=== PATIENT | female | born 1965 | race Caucasian/White ===

== ENCOUNTER 2017-02-12 15:53 | Inpatient (IN) | payer BC ==
[2017-02-12] MEDS ORDERED: Lactated Ringers 1,000 ML IV ONE (16:20)
[2017-02-12] MEDS ORDERED: Fluconazole/Normal Saline 200 MG in Premix Bag 1 BAG IV ONE (16:46)
[2017-02-12] MEDS ORDERED: Acetaminophen 325 MG Tab PO ONE (17:41)
--- NOTE | 2017-02-12 17:49 | EDM.PDOC ---
ED HISTORY OF PRESENT ILLNESS - General Chief Complaint: Respiratory Problem Stated Complaint: SOB, ELEVATED HR, NAUSEA Time Seen by Provider: 02/12/17 16:06 Source of Information: Reports: Patient, Family, Provider History Limitations: Reports: No limitations - History of Present Illness INITIAL COMMENTS - FREE TEXT/NARRATIVE: The patient presents with fever, cough, generalized weakness, shortness of breath and fatigue. This all started about 2 1/2 weeks ago. Before that she was in [place] to meet with some family and a few days after that she started having symptoms. She was seen at [facility] in clinic on 02/03/17 and was given some doxycycline and some tinsilon pearls She went back today because she is not feeling better. She is not feeling well. She is lightheaded and still coughing. She also has a fever. They checked labs. Her WBC was normal along with her CRP and sed rate. Her anion gap was a little elevated at 24. Her D-dimer was elevated so they did a CT angio of her chest and it was negative for PE but she had infiltrates in the right lung. When she arrived here, she was flushed and her heart rate was elevated into the 150s. She denies chest pain. Timing/Duration: Reports: Week(s): (11/18) Severity: severe Improves with: Reports: None Worsens with: Reports: None Associated Symptoms (General): Reports: cough, fever/chills, shortness of breath. Denies: nausea/vomiting - Related Data Allergies/ADRs: Allergies Allergy/AdvReac Type Severity Reaction Status Date / Time morphine Allergy Hives Verified 06/16/16 16:14 Sulfa (Sulfonamide Allergy Hives Verified 06/16/16 16:14 Antibiotics) Home Meds: Home Meds Levothyroxine Sodium [Synthroid] 1 tab PO DAILY 01/22/15 [History] Past Medical History Cardiovascular History: Reports: High cholesterol, Other (see below) Other Cardiovascular History: sinus tachycardia Gastrointestinal History: Reports: Other (see below) Other Gastrointestinal History: ulcerative colitis Genitourinary History: Reports: Renal calculus 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: Endocrine/Metabolic History: Reports: Hypothyroidism - Past Surgical History GI Surgical History: Reports: Appendectomy, Cholecystectomy, Other (see below) Other GI Surgeries/Procedures: bowel obstruction sx, removal of colon and most of small bowel, Social & Family History - Tobacco Use Smoking Status *Q: Never Smoker Second Hand Smoke Exposure: No - Caffeine Use Caffeine Use: Reports: Coffee, Tea - Alcohol Use Days Per Week of Alcohol Use: 0 - Recreational Drug Use Recreational Drug Use: No - Living Situation & Occupation Living situation: Reports: , with spouse, with family Occupation: employed ED ROS GENERAL - Review of Systems Review Of Systems: See Below Constitutional: Reports: fever, chills, malaise, weakness, fatigue HEENT: Reports: No symptoms Respiratory: Reports: Shortness of Breath, Cough Cardiovascular: Reports: No symptoms Endocrine: Reports: no symptoms GI/Abdominal: Reports: No symptoms : Reports: no symptoms Musculoskeletal: Reports: no symptoms Skin: Reports: no symptoms Neurological: Reports: No Symptoms ED EXAM, GENERAL - Physical Exam Exam: See Below Exam Limited By: No limitations General Appearance: alert, no apparent distress Ears: normal external exam Nose: normal inspection Head: atraumatic, normocephalic Neck: normal inspection Respiratory/Chest: no respiratory distress, lungs clear, normal breath sounds Cardiovascular: no edema, no murmur, tachycardia GI/Abdominal: soft, non tender, no organomegaly Back Exam: normal inspection Extremities: normal inspection Neurological: alert, oriented, no motor/sensory deficits Course - Vital Signs Last Recorded V/S: Last Vital Signs Temp 101.8 F H 02/12/17 17:09 Pulse 123 H 02/12/17 17:09 Resp 22 H 02/12/17 17:09 BP 128/84 02/12/17 16:01 Pulse Ox 98 02/12/17 17:09 - Orders/Labs/Meds Orders: Active Orders 24 hr Category Date Time Status COCCIDIOIDES AB CF/ID SERUM [REF] Stat Lab 02/12/17 17:21 Received CULTURE BLOOD [BC] Stat Lab 02/12/17 16:50 Received CULTURE BLOOD [BC] Stat Lab 02/12/17 17:05 Received LACTIC ACID [CHEM] Stat Lab 02/12/17 16:50 Received Blood Culture x2 Reflex Set [OM.PC] Stat Oth 02/12/17 16:19 Ordered Meds: Medications Discontinued Medications Generic Name Dose Route Start Last Admin Trade Name Freq PRN Reason Stop Dose Admin Acetaminophen 975 mg 02/12/17 17:41 Tylenol PO 02/12/17 17:42 NOW ONE Lactated Ringer's 1,000 mls @ 1,000 mls/hr 02/12/17 16:20 02/12/17 16:32 Ringers, Lactated IV 02/12/17 17:19 1,000 mls/hr .BOLUS ONE Administration Fluconazole/Sodium Chloride 100 mls @ 100 mls/hr 02/12/17 16:46 02/12/17 17: 05 200 mg/ Premix IV 02/12/17 17:45 100 mls/hr ONETIME ONE Administration - Re-Assessments/Exams Free Text/Narrative Re-Assessment/Exam: 02/12/17 18:03 I ordered an IV LR bolus, levaquin 750mg IV, and diflucan 200mg IV. I am worried she may have [place] Fever. I obtained blood cultures and sent off serum for coccytiomycosis. I called Dr Alanis and she agreed to the admission. She requested I send out a test for legionella. I gave her some tylenol 975mg by mouth for her fever. Departure - Departure Time of Disposition: 18:05 Disposition: Home, Self-Care 01 Condition: good Clinical Impression: Dehydration Pneumonia Qualifiers: Pneumonia type: due to unspecified organism Laterality: right Lung location: upper lobe of lung Qualified Code(s): J18.1 - Lobar pneumonia, unspecified organism Forms: ED Department Discharge - My Orders Last 24 Hours: My Active Orders 02/12/17 16:19 Blood Culture x2 Reflex Set [OM.PC] Stat 02/12/17 16:50 CULTURE BLOOD [BC] Stat LACTIC ACID [CHEM] Stat 02/12/17 17:05 CULTURE BLOOD [BC] Stat 02/12/17 17:21 COCCIDIOIDES AB CF/ID SERUM [REF] Stat - Assessment/Plan Last 24 Hours: My Active Orders 02/12/17 16:19 Blood Culture x2 Reflex Set [OM.PC] Stat 02/12/17 16:50 CULTURE BLOOD [BC] Stat LACTIC ACID [CHEM] Stat 02/12/17 17:05 CULTURE BLOOD [BC] Stat 02/12/17 17:21 COCCIDIOIDES AB CF/ID SERUM [REF] Stat
--- NOTE | 2017-02-12 18:16 | PCM.HP ---
H&P History of Present Illness - General Date of Service: 02/12/17 Source of Information: Patient, Provider History Limitations: Reports: No limitations - History of Present Illness Initial Comments - Free Text/Narative: 51 year old female with 2-3 week history of not feeling well, traveled roughly 2 weeks ago to [place]. Played gold, occasionally use a hot tube reports malaise, weakness, fever, and a dry cough. Failed outpatient antibiotic therapy of doxycycline and tessalon perles. An extensive respiratory panel has been ordered. WBCs are not elevated, CXR is not suggestive of a pulmonary process CTA however mentions a right sided infiltrate. The patient has been started on Levoquin, Zosyn, and Diflucan Onset of Symptoms: Reports: gradual Symptom Onset Date: 01/22/17 Duration of Symptoms: Reports: Week(s):, Getting worse Location: Reports: chest Severity: severe Improves with: Reports: None Worsens with: Reports: None Context: Reports: travel Associated Symptoms: Reports: chest pain, cough, fever/chills, malaise, nausea/ vomiting, weakness Back Pain Score (Numeric/FACES): 5 - Related Data Allergies/Adverse Reactions: Allergies Allergy/AdvReac Type Severity Reaction Status Date / Time morphine Allergy Hives Verified 06/16/16 16:14 Sulfa (Sulfonamide Allergy Hives Verified 06/16/16 16:14 Antibiotics) Home Medications: Home Meds Levothyroxine Sodium [Synthroid] 1 tab PO DAILY 01/22/15 [History] Past Medical History Cardiovascular History: Reports: High cholesterol, Other (see below) Other Cardiovascular History: sinus tachycardia Gastrointestinal History: Reports: Other (see below) Other Gastrointestinal History: ulcerative colitis Genitourinary History: Reports: Renal calculus 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: Endocrine/Metabolic History: Reports: Hypothyroidism - Past Surgical History GI Surgical History: Reports: Appendectomy, Cholecystectomy, Other (see below) Other GI Surgeries/Procedures: bowel obstruction sx, removal of colon and most of small bowel, Social & Family History - Tobacco Use Smoking Status *Q: Never Smoker Second Hand Smoke Exposure: No - Caffeine Use Caffeine Use: Reports: Coffee, Tea - Alcohol Use Days Per Week of Alcohol Use: 0 - Recreational Drug Use Recreational Drug Use: No - Living Situation & Occupation Living situation: Reports: , with spouse, with family Occupation: employed H&P Review of Systems - Review of Systems: Review Of Systems: See Below General: Reports: fever, chills, malaise, weakness, fatigue HEENT: Reports: no symptoms Pulmonary: Reports: Shortness of Breath Cardiovascular: Reports: palpitations, lightheadedness Gastrointestinal: Reports: No symptoms Genitourinary: Reports: no symptoms Musculoskeletal: Reports: no symptoms Skin: Reports: no symptoms Psychiatric: Reports: no symptoms Neurological: Reports: Dizziness Hematologic/Lymphatic: Reports: no symptoms Immunologic: Reports: no symptoms Exam - Exam Exam: See Below - Vital Signs Vital Signs: Last Vital Signs Temp 38.5 C H 02/12/17 18:05 Pulse 123 H 02/12/17 17:09 Resp 22 H 02/12/17 17:09 BP 128/84 02/12/17 16:01 Pulse Ox 98 02/12/17 17:09 Weight: 78.925 kg - Exam Quality Assessment: supplemental oxygen, DVT prophylaxis General: alert, oriented, cooperative, mild distress HEENT: EACs clear, EOMI, Nares patent, Normal nasal septum, Pupils equal, Pupils reactive, Other (dry mucosa) Neck: trachea midline Lungs: Normal respiratory effort, Decreased breath sounds Cardiovascular: regular rate, tachycardia Abdomen: normal bowel sounds, soft (Female) Exam: Deferred Rectal (Female) Exam: Deferred Back Exam: normal inspection Extremities: normal pulses Skin: warm Neurological: cranial nerves intact Neuro Extensive - Mental Status: alert, oriented x3, normal mood/affect, normal cognition, memory intact Neuro Extensive - Motor, Sensory, Reflexes: CN II-XII intact Psychiatric: alert, normal affect, normal mood *Q Meaningful Use (ADM) - VTE *Q VTE Criteria *Q: - Stroke *Q Stroke Criteria *Q: - AMI *Q AMI Criteria *Q: - Problem List (1) Dehydration SNOMED Code(s): 10606479 ICD Code: E86.0 - DEHYDRATION Status: Acute Current Visit: Yes (2) Pneumonia SNOMED Code(s): 157169460 ICD Code: J18.9 - PNEUMONIA, UNSPECIFIED ORGANISM Status: Acute Current Visit: Yes Qualifiers: Pneumonia type: due to unspecified organism Laterality: right Lung location: upper lobe of lung Qualified Code(s): J18.1 - Lobar pneumonia, unspecified organism (3) Abdominal pain SNOMED Code(s): 25374127 ICD Code: R10.9 - UNSPECIFIED ABDOMINAL PAIN Status: Acute Current Visit : No (4) Acute febrile illness SNOMED Code(s): 922169617 ICD Code: R50.9 - FEVER, UNSPECIFIED Status: Acute Current Visit: No Problem List Initiated/Reviewed/Updated: Yes Assessment/Plan Comment:: Impression/Plan: Febrile illness appears to be respiratory after travel to the , had brief exposure to a hot tub during [place] trip. CAP, can not exclude atypical pneumonia, have started broad spectrum coverage including Diflucan; extensive respiratory panel ordered. Not currently hypoxic Dehydration Sepsis protocol started, aggressive IV hydration Antiemetic q 6 and q 8 as needed. Nebs: Xopenex/Albuterol Tylenol/NSAID Start clear liquids, advance as tolerated. DVT/GI prophylaxis
[2017-02-12] MEDS ORDERED: Promethazine 12.5 MG in Sodium Chloride 0.9% 50 ML IV PRN (18:21)
[2017-02-12] MEDS ORDERED: Acetaminophen Susp 325 MG/10.15 ML UD Cup PO PRN (18:21)
[2017-02-12] MEDS ORDERED: Ondansetron 4 MG/2 ML SDV IVPUSH PRN (18:21)
[2017-02-12] MEDS ORDERED: Piperacillin/Tazobactam 4.5 GM in Sodium Chloride 0.9% 100 ML IV SCH (18:45)
[2017-02-12] MEDS ORDERED: Albuterol 0.083% 2.5 MG/3 ML Neb Soln NEB PRN (18:49)
[2017-02-12] MEDS ORDERED: Codeine/Promethazine 10-6.25 MG/5 ML Syrup 5 ML UD Cup PO PRN (18:50)
[2017-02-12] MEDS ORDERED: Piperacillin/Tazobactam 4.5 GM in Sodium Chloride 0.9% 100 ML IV ONE (19:45)
[2017-02-12] MEDS: Levalbuterol HCl 1.25 MG/3 ML Neb NEB SCH (20:19)
[2017-02-12] MEDS: Benzonatate 100 MG Cap PO SCH (20:38)
[2017-02-12] MEDS: Lactated Ringers 1,000 ML IV SCH ×4 (20:38→23:58)
[2017-02-12] MEDS ORDERED: Fluconazole 100 MG Tab PO SCH (21:00)
[2017-02-12] MEDS ORDERED: Levalbuterol HCl 1.25 MG/3 ML Neb NEB SCH (21:00)
[2017-02-12] MEDS: Ibuprofen 600 MG Tab PO PRN (21:08)
[2017-02-13] MEDS: Piperacillin/Tazobactam 4.5 GM in Sodium Chloride 0.9% 100 ML IV SCH ×3 (04:10→18:12)
[2017-02-13] MEDS: Levalbuterol HCl 1.25 MG/3 ML Neb NEB SCH ×4 (06:12→20:32)
[2017-02-13] MEDS ORDERED: Lactated Ringers 1,000 ML IV SCH (07:53)
[2017-02-13] MEDS: Levofloxacin/Dextrose 5%-Water 750 MG in Premix Bag 1 BAG IV SCH (07:57)
[2017-02-13] MEDS: Lactated Ringers 1,000 ML IV SCH (07:58)
[2017-02-13] MEDS: Levothyroxine 88 MCG Tab PO SCH (08:04)
[2017-02-13] MEDS: Fluconazole 100 MG Tab PO SCH ×2 (08:04→20:12)
[2017-02-13] MEDS: Benzonatate 100 MG Cap PO SCH ×3 (08:04→20:12)
[2017-02-13] MEDS: Saccharomyces Boulardii (Probiotic) 250 MG Cap PO SCH (08:04)
[2017-02-13] MEDS: Ibuprofen 600 MG Tab PO PRN (08:05)
[2017-02-13] MEDS: Enoxaparin 40 MG/0.4 ML Syringe SUBCUT SCH (08:05)
[2017-02-13] MEDS ORDERED: Pantoprazole 40 MG Vial IVPUSH SCH (09:00)
[2017-02-13] MEDS ORDERED: Non-Formulary Medication 1 Each (L.Acidoph,Paracasei, B.Lactis [Probiotic] 1 CAP) PO PRN (09:46)
--- NOTE | 2017-02-13 12:30 | PCM.PN ---
- General Info Date of Service: 02/13/17 Functional Status: Reports: tolerating diet, urinating - Review of Systems General: Reports: Weakness, Fatigue, Malaise HEENT: Reports: no symptoms Pulmonary: Reports: no symptoms Cardiovascular: Reports: No Symptoms Gastrointestinal: Reports: No symptoms Genitourinary: Reports: no symptoms Musculoskeletal: Reports: no symptoms Skin: Reports: no symptoms Neurological: Reports: No Symptoms Psychiatric: Reports: no symptoms - Patient Data Vitals - most recent: Last Vital Signs Temp 37.2 C 02/13/17 07:52 Pulse 115 H 02/13/17 07:52 Resp 18 02/13/17 07:52 BP 109/66 02/13/17 07:52 Pulse Ox 95 02/13/17 09:03 Weight - most recent: 82.69 kg I&O - last 24 hours: Intake & Output 02/12/17 02/13/17 02/13/17 22:59 06:59 14:59 Intake Total 4140 Output Total 500 950 Balance -500 3190 Lab Results last 24 hrs: Laboratory Results - last 24 hr 02/13/17 02/13/17 02/13/17 Range/Units 06:35 06:35 06:35 WBC 3.63 L (3.98-10.04) K/mm3 RBC 3.64 L (3.98-5.22) M/mm3 Hgb 10.7 L (11.2-15.7) gm/L Hct 33.0 L (34.1-44.9) % MCV 90.7 (79.4-94.8) fl MCH 29.4 (25.6-32.2) pg MCHC 32.4 (32.2-35.5) g/dl RDW Std Deviation 43.2 (36.4-46.3) fL Plt Count 121 L (182-369) K/mm3 MPV 10.0 (9.4-12.3) fl Neut % (Auto) 67.5 (34.0-71.1) % Lymph % (Auto) 25.9 (19.3-51.7) % [place] % (Auto) 6.3 (4.7-12.5) % Eos % (Auto) 0 L (0.7-5.8) Baso % (Auto) 0.0 L (0.1-1.2) % Neut # (Auto) 2.45 (1.56-6.13) K/mm3 Lymph # (Auto) 0.94 L (1.18-3.74) K/mm3 [place] # (Auto) 0.23 L (0.24-0.36) K/mm3 Eos # (Auto) 0.00 L (0.04-0.36) K/mm3 Baso # (Auto) 0.00 L (0.01-0.08) K/mm3 Sodium 141 (136-145) mEq/L Potassium 3.0 L (3.5-5.1) mEq/L Chloride 107 (98-107) mEq/L Carbon Dioxide 22 (21-32) mEq/L Anion Gap 15.0 (5-15) BUN 12 (7-18) mg/dL Creatinine 0.8 (0.55-1.02) mg/dL Est Cr Clr Drug Dosing 69.59 mL/min Estimated GFR (MDRD) > 60 (>60) mL/min BUN/Creatinine Ratio 15.0 (14-18) Glucose 98 (74-106) mg/dL Lactic Acid 1.5 (0.4-2.0) mmol/L Calcium 8.2 L (8.5-10.1) mg/dL Magnesium 1.5 L (1.8-2.4) mg/dl C-Reactive Protein 1.3 H* (<1.0) mg/dL TSH 3rd Generation 2.028 (0.358-3.74) uIU/mL John Paul Results last 24 hrs: Microbiology 02/12/17 18:30 Influenza Type A Antigen Screen - Final Nasal, Right NEGATIVE INFLUENZA A VIRUS AG Influenza Type B Antigen Screen - Final NEGATIVE INFLUENZA B VIRUS AG Med Orders - Current: Current Medications Acetaminophen (Tylenol Solution) 650 mg PO Q6H PRN PRN Reason: Fever Albuterol (Proventil Neb Soln) 2.5 mg NEB Q4HR PRN PRN Reason: Shortness of Breath Benzonatate (Tessalon Perles) 200 mg PO TID [facility] Last Admin: 02/13/17 08:04 Dose: 200 mg Enoxaparin Sodium (Lovenox) 40 mg SUBCUT DAILY [facility] Last Admin: 02/13/17 08:05 Dose: 40 mg Fluconazole (Diflucan) 200 mg PO BID [facility] Last Admin: 02/13/17 08:04 Dose: 200 mg Promethazine HCl 12.5 mg/ (Sodium Chloride) 50.5 mls @ 100 mls/hr IV Q6H PRN PRN Reason: Nausea/Vomiting Levofloxacin/Dextrose 750 mg/ (Premix) 150 mls @ 100 mls/hr IV Q24H [facility] Last Admin: 02/13/17 07:57 Dose: 100 mls/hr Piperacillin Sod/Tazobactam (Sod 4.5 gm/ Sodium Chloride) 100 mls @ 25 mls/hr IV Q8H [facility] Last Admin: 02/13/17 10:05 Dose: 25 mls/hr Lactated Ringer's (Ringers, Lactated) 1,000 mls @ 125 mls/hr IV ASDIRECTED [facility] Last Admin: 02/13/17 07:59 Dose: 125 mls/hr Magnesium Sulfate 2 gm/ Premix 50 mls @ 25 mls/hr IV ONETIME ONE Stop: 02/13/17 16:59 Ibuprofen (Motrin) 600 mg PO Q8H PRN PRN Reason: Pain Last Admin: 02/13/17 08:05 Dose: 600 mg Levalbuterol HCl (Xopenex) 1.25 mg NEB QIDRT [facility] Last Admin: 02/13/17 09:03 Dose: 1.25 mg Levothyroxine Sodium (Synthroid) 88 mcg PO DAILY [facility] Last Admin: 02/13/17 08:04 Dose: 88 mcg Ondansetron HCl (Zofran) 4 mg IVPUSH Q8H PRN PRN Reason: Nausea/Vomiting Pantoprazole Sodium (Protonix) 40 mg PO DAILY@0700 [facility] Potassium Chloride (Potassium Chloride Solution) 40 meq PO TID [facility] Promethazine HCl/Codeine (Phenergan With Codeine) 10 ml PO Q6HR PRN PRN Reason: Cough Saccharomyces Boulardii (Florastor) 500 mg PO DAILY [facility] Last Admin: 02/13/17 08:04 Dose: 500 mg Discontinued Medications Acetaminophen (Tylenol) 975 mg PO NOW ONE Stop: 02/12/17 17:42 Last Admin: 02/12/17 18:05 Dose: 975 mg Fluconazole (Diflucan) 200 mg PO BID [facility] Lactated Ringer's (Ringers, Lactated) 1,000 mls @ 1,000 mls/hr IV .BOLUS ONE Stop: 02/12/17 17:19 Last Admin: 02/12/17 16:32 Dose: 1,000 mls/hr Fluconazole/Sodium Chloride (200 mg/ Premix) 100 mls @ 100 mls/hr IV ONETIME ONE Stop: 02/12/17 17:45 Last Admin: 02/12/17 17:05 Dose: 100 mls/hr Lactated Ringer's (Ringers, Lactated) 1,000 mls @ 999 mls/hr IV ASDIRECTED [facility] Last Admin: 02/12/17 22:53 Dose: 999 mls/hr Piperacillin Sod/Tazobactam (Sod 4.5 gm/ Sodium Chloride) 100 mls @ 200 mls/hr IV Q6H [facility] Last Admin: 02/12/17 19:51 Dose: Not Given Piperacillin Sod/Tazobactam (Sod 4.5 gm/ Sodium Chloride) 100 mls @ 200 mls/hr IV ONETIME ONE Stop: 02/12/17 20:14 Last Admin: 02/12/17 19:44 Dose: 200 mls/hr Lactated Ringer's (Ringers, Lactated) 1,000 mls @ 250 mls/hr IV ASDIRECTED [facility] Stop: 02/13/17 07:54 Last Admin: 02/13/17 07:58 Dose: 250 mls/hr Levalbuterol HCl (Xopenex) 1.25 mg NEB QID [facility] Non-Formulary Medication (L.Acidoph,Paracasei, B.Lactis [Probiotic]) 1 cap PO DAILY PRN PRN Reason: Diarrhea Pantoprazole Sodium (Protonix Iv) 40 mg IVPUSH DAILY [facility] Last Admin: 02/13/17 08:05 Dose: 40 mg - Exam Quality Assessment: DVT prophylaxis General: alert, oriented, cooperative, no acute distress HEENT: Pupils equal, Pupils reactive, EOMI Neck: trachea midline, no JVD Lungs: Normal respiratory effort, Decreased breath sounds Cardiovascular: Regular Rate, Tachycardia Abdomen: bowel sounds present, soft, no tenderness, no distension (Female) Exam: Deferred Back Exam: normal inspection Extremities: normal pulses Skin: warm Neurological: no new focal deficit, normal speech Psy/Mental Status: alert, normal affect, normal mood - Problem List & Annotations (1) Dehydration SNOMED Code(s): 90180825 Code(s): E86.0 - DEHYDRATION Status: Acute Current Visit: Yes (2) Pneumonia SNOMED Code(s): 107736590 Code(s): J18.9 - PNEUMONIA, UNSPECIFIED ORGANISM Status: Acute Current Visit: Yes Qualifiers: Pneumonia type: due to unspecified organism Laterality: right Lung location: upper lobe of lung Qualified Code(s): J18.1 - Lobar pneumonia, unspecified organism (3) Abdominal pain SNOMED Code(s): 79418295 Code(s): R10.9 - UNSPECIFIED ABDOMINAL PAIN Status: Acute Current Visit: No (4) Acute febrile illness SNOMED Code(s): 006848257 Code(s): R50.9 - FEVER, UNSPECIFIED Status: Acute Current Visit: No - Problem List Review Problem List Initiated/Reviewed/Updated: Yes - My Orders Last 24 Hours: My Active Orders 02/12/17 18:21 Acetaminophen [Tylenol Solution] 650 mg PO Q6H PRN Ondansetron [Zofran] 4 mg IVPUSH Q8H PRN Promethazine [Phenergan] 12.5 mg Sodium Chloride 0.9% [Normal Saline] 50 ml IV Q6H 02/12/17 18:23 Code Status [Resuscitation Status] Routine 02/12/17 18:24 RT Aerosol Therapy [RC] .PRN FILOMENA Hose [Antiembolic Hose] [OM.PC] Routine 02/12/17 18:25 Antiembolic Devices [RC] QSHIFT Ibuprofen [Motrin] 600 mg PO Q8H PRN 02/12/17 18:49 Albuterol [Proventil Neb Soln] 2.5 mg NEB Q4HR PRN 02/12/17 18:50 STREP PNEUMONIAE ANTIGEN [MREF] Routine Codeine/Promethazine [Phenergan with Codeine] 10 ml PO Q6HR PRN 02/12/17 18:52 Isolation [COMM] Routine 02/12/17 19:50 RESPIRATORY PANEL BY PCR [MREF] Routine 02/12/17 21:00 Benzonatate [Tessalon Perles] 200 mg PO TID Levalbuterol HCl [Xopenex] 1.25 mg NEB QIDRT 02/13/17 03:00 Piperacillin/Tazobactam [Zosyn] 4.5 gm Sodium Chloride 0.9% [Normal Saline] 100 ml IV Q8H 02/13/17 07:53 Lactated Ringers [Ringers, Lactated] 1,000 ml IV ASDIRECTED 02/13/17 08:00 Levofloxacin/Dextrose 5%-Water [Levaquin in D5W 750 MG/150 ML] 750 mg Premix Bag 1 bag IV Q24H 02/13/17 09:00 Enoxaparin [Lovenox] 40 mg SUBCUT DAILY Fluconazole [Diflucan] 200 mg PO BID Levothyroxine [Synthroid] 88 mcg PO DAILY Saccharomyces Boulardii [Florastor] 500 mg PO DAILY 02/13/17 15:00 Magnesium Sulfate/Water [Magnesium Sulfate 2 GM in Water 50 ML] 2 gm Premix Bag 1 bag IV ONETIME Potassium Chloride [Potassium Chloride Solution] 40 meq PO TID 02/13/17 Dinner Clear Liquid Diet [DIET] 02/14/17 05:00 BMP [BASIC METABOLIC PANEL,BMP] [CHEM] DAILY CBC WITH AUTO DIFF [HEME] DAILY CRP [C-REACTIVE PROTEIN] [CHEM] DAILY LACTIC ACID [CHEM] DAILY MAGNESIUM [CHEM] DAILY 02/14/17 07:00 Pantoprazole [ProTONIX] 40 mg PO DAILY@0700 02/15/17 05:00 BMP [BASIC METABOLIC PANEL,BMP] [CHEM] DAILY CBC WITH AUTO DIFF [HEME] DAILY CRP [C-REACTIVE PROTEIN] [CHEM] DAILY MAGNESIUM [CHEM] DAILY 02/16/17 05:00 BMP [BASIC METABOLIC PANEL,BMP] [CHEM] DAILY CBC WITH AUTO DIFF [HEME] DAILY - Plan Plan:: Impression/Plan: Febrile illness appears to be respiratory after travel to the , had brief exposure to a hot tub during [place] trip. CAP, can not exclude atypical pneumonia, have started broad spectrum coverage including Diflucan; extensive respiratory panel ordered. Not currently hypoxic Dehydration, continue IVF, decrease rate to 70 cc/h. Sepsis protocol started, aggressive IV hydration Antiemetic q 6 and q 8 as needed. Nebs: Xopenex/Albuterol Tylenol/NSAID Start clear liquids, advance as tolerated to regular diet. DVT/GI prophylaxis
[2017-02-13] MEDS: Potassium Chloride 20 MEQ Tab.ER PO SCH ×2 (14:42→20:12)
[2017-02-13] MEDS ORDERED: Potassium Chloride 10% 20 MEQ/15 ML Soln 15 ML UD Cup PO SCH (15:00)
[2017-02-13] MEDS ORDERED: Magnesium Sulfate/Water 2 GM in Premix Bag 1 BAG IV ONE (15:00)
--- NOTE | 2017-02-13 20:18 | PCM.SN ---
- Free Text/Narrative Note: in room at 191 IV start to right wrist 24ga good blood return good flush out room at 192
[2017-02-13] MEDS ORDERED: Acetaminophen 325 MG Tab PO PRN (20:44)
[2017-02-14] MEDS: Piperacillin/Tazobactam 4.5 GM in Sodium Chloride 0.9% 100 ML IV SCH ×2 (03:21→10:41)
[2017-02-14] MEDS: Pantoprazole 40 MG Tab.CR PO SCH (06:21)
[2017-02-14] MEDS: Levalbuterol HCl 1.25 MG/3 ML Neb NEB SCH ×3 (06:28→15:53)
[2017-02-14] MEDS: Levofloxacin/Dextrose 5%-Water 750 MG in Premix Bag 1 BAG IV SCH (08:17)
[2017-02-14] MEDS: Metoprolol Tartrate 25 MG Tab PO SCH ×2 (08:18→19:03)
[2017-02-14] MEDS: Potassium Chloride 20 MEQ Tab.ER PO SCH ×3 (08:19→20:32)
[2017-02-14] MEDS: Benzonatate 100 MG Cap PO SCH ×3 (08:19→20:33)
[2017-02-14] MEDS: Levothyroxine 88 MCG Tab PO SCH (08:20)
[2017-02-14] MEDS: Saccharomyces Boulardii (Probiotic) 250 MG Cap PO SCH (08:20)
[2017-02-14] MEDS: Fluconazole 100 MG Tab PO SCH ×2 (08:20→20:32)
[2017-02-14] MEDS: methylPREDNISolone Sodium Succinate 40 MG/1 ML SDV IVPUSH SCH ×2 (10:41→17:30)
[2017-02-14] MEDS: Enoxaparin 40 MG/0.4 ML Syringe SUBCUT SCH (10:42)
[2017-02-14] MEDS: Sodium Chloride 0.9% 1,000 ML IV SCH (11:00)
--- NOTE | 2017-02-14 11:57 | PCM.PN ---
- General Info Date of Service: 02/14/17 Admission Dx/Problem (Free Text): Patient is aware of elevated heart rate with movement, has refused beta hiro in the past. Functional Status: Reports: tolerating diet, ambulating, urinating - Review of Systems General: Reports: Weakness HEENT: Reports: no symptoms Pulmonary: Reports: shortness of breath Cardiovascular: Reports: Palpitations. Denies: No Symptoms Gastrointestinal: Reports: No symptoms Genitourinary: Reports: no symptoms Musculoskeletal: Reports: no symptoms Skin: Reports: no symptoms Neurological: Reports: No Symptoms Psychiatric: Reports: no symptoms - Patient Data Vitals - most recent: Last Vital Signs Temp 37.2 C 02/14/17 08:09 Pulse 88 02/14/17 08:18 Resp 17 02/14/17 08:09 BP 108/60 02/14/17 08:18 Pulse Ox 96 02/14/17 10:07 Weight - most recent: 81.012 kg I&O - last 24 hours: Intake & Output 02/13/17 02/14/17 02/14/17 22:59 06:59 14:59 Intake Total 1545 1246 Output Total 1150 600 Balance 395 646 Lab Results last 24 hrs: Laboratory Results - last 24 hr 02/14/17 02/14/17 02/14/17 Range/Units 04:30 04:37 04:37 WBC 3.00 L (3.98-10.04) K/mm3 RBC 3.66 L (3.98-5.22) M/mm3 Hgb 11.0 L (11.2-15.7) gm/L Hct 33.0 L (34.1-44.9) % MCV 90.2 (79.4-94.8) fl MCH 30.1 (25.6-32.2) pg MCHC 33.3 (32.2-35.5) g/dl RDW Std Deviation 43.0 (36.4-46.3) fL Plt Count 86 L (182-369) K/mm3 MPV 10.1 (9.4-12.3) fl Neut % (Auto) 75.4 H (34.0-71.1) % Lymph % (Auto) 18.7 L (19.3-51.7) % [place] % (Auto) 5.3 (4.7-12.5) % Eos % (Auto) 0 L (0.7-5.8) Baso % (Auto) 0.3 (0.1-1.2) % Neut # (Auto) 2.26 (1.56-6.13) K/mm3 Lymph # (Auto) 0.56 L (1.18-3.74) K/mm3 [place] # (Auto) 0.16 L (0.24-0.36) K/mm3 Eos # (Auto) 0.00 L (0.04-0.36) K/mm3 Baso # (Auto) 0.01 (0.01-0.08) K/mm3 Manual Slide Review Abnormal smear Sodium 140 (136-145) mEq/L Potassium 2.8 L (3.5-5.1) mEq/L Chloride 107 (98-107) mEq/L Carbon Dioxide 23 (21-32) mEq/L Anion Gap 12.8 (5-15) BUN 7 (7-18) mg/dL Creatinine 0.9 (0.55-1.02) mg/dL Est Cr Clr Drug Dosing 61.86 mL/min Estimated GFR (MDRD) > 60 (>60) mL/min BUN/Creatinine Ratio 7.8 L (14-18) Glucose 113 H (74-106) mg/dL Lactic Acid 1.4 (0.4-2.0) mmol/L Calcium 8.1 L (8.5-10.1) mg/dL Magnesium 1.5 L (1.8-2.4) mg/dl C-Reactive Protein 2.0 H* (<1.0) mg/dL Adriane Results last 24 hrs: Microbiology 02/12/17 19:50 Respiratory Virus Panel (PCR) (ADRIANE) - Final Nasopharyngeal Swab - Nare, Right 02/12/17 18:50 Streptococcus pneumoniae Antigen (M - Final Urine 02/12/17 18:50 Legionella Urinary Antigen - Final Urine Med Orders - Current: Current Medications Acetaminophen (Tylenol) 650 mg PO Q6H PRN PRN Reason: Fever Last Admin: 02/13/17 21:11 Dose: 650 mg Albuterol (Proventil Neb Soln) 2.5 mg NEB Q4HR PRN PRN Reason: Shortness of Breath Benzonatate (Tessalon Perles) 200 mg PO TID [facility] Last Admin: 02/14/17 08:19 Dose: 200 mg Fluconazole (Diflucan) 200 mg PO BID [facility] Last Admin: 02/14/17 08:20 Dose: 200 mg Promethazine HCl 12.5 mg/ (Sodium Chloride) 50.5 mls @ 100 mls/hr IV Q6H PRN PRN Reason: Nausea/Vomiting Levofloxacin/Dextrose 750 mg/ (Premix) 150 mls @ 100 mls/hr IV Q24H [facility] Last Admin: 02/14/17 08:17 Dose: 100 mls/hr Piperacillin Sod/Tazobactam (Sod 4.5 gm/ Sodium Chloride) 100 mls @ 25 mls/hr IV Q8H [facility] Last Admin: 02/14/17 10:41 Dose: 25 mls/hr Sodium Chloride (Normal Saline) 1,000 mls @ 70 mls/hr IV ASDIRECTED [facility] Ibuprofen (Motrin) 600 mg PO Q8H PRN PRN Reason: Pain Last Admin: 02/13/17 08:05 Dose: 600 mg Levalbuterol HCl (Xopenex) 1.25 mg NEB QIDRT [facility] Last Admin: 02/14/17 10:07 Dose: 1.25 mg Levothyroxine Sodium (Synthroid) 88 mcg PO DAILY [facility] Last Admin: 02/14/17 08:20 Dose: 88 mcg Methylprednisolone Sodium Succinate (Solu-Medrol) 40 mg IVPUSH Q8H [facility] Last Admin: 02/14/17 10:41 Dose: 40 mg Metoprolol Tartrate (Lopressor) 25 mg PO Q12HR [facility] Last Admin: 02/14/17 08:18 Dose: Not Given Ondansetron HCl (Zofran) 4 mg IVPUSH Q8H PRN PRN Reason: Nausea/Vomiting Last Admin: 02/14/17 10:33 Dose: 4 mg Pantoprazole Sodium (Protonix) 40 mg PO DAILY@0700 [facility] Last Admin: 02/14/17 06:21 Dose: 40 mg Potassium Chloride (Klor-Con M20) 60 meq PO TID [facility] Promethazine HCl/Codeine (Phenergan With Codeine) 10 ml PO Q6HR PRN PRN Reason: Cough Saccharomyces Boulardii (Florastor) 500 mg PO DAILY [facility] Last Admin: 02/14/17 08:20 Dose: 500 mg Discontinued Medications Acetaminophen (Tylenol) 975 mg PO NOW ONE Stop: 02/12/17 17:42 Last Admin: 02/12/17 18:05 Dose: 975 mg Acetaminophen (Tylenol Solution) 650 mg PO Q6H PRN PRN Reason: Fever Enoxaparin Sodium (Lovenox) 40 mg SUBCUT DAILY [facility] Last Admin: 02/14/17 10:42 Dose: Not Given Fluconazole (Diflucan) 200 mg PO BID [facility] Lactated Ringer's (Ringers, Lactated) 1,000 mls @ 1,000 mls/hr IV .BOLUS ONE Stop: 02/12/17 17:19 Last Admin: 02/12/17 16:32 Dose: 1,000 mls/hr Fluconazole/Sodium Chloride (200 mg/ Premix) 100 mls @ 100 mls/hr IV ONETIME ONE Stop: 02/12/17 17:45 Last Admin: 02/12/17 17:05 Dose: 100 mls/hr Lactated Ringer's (Ringers, Lactated) 1,000 mls @ 999 mls/hr IV ASDIRECTED [facility] Last Admin: 02/12/17 22:53 Dose: 999 mls/hr Piperacillin Sod/Tazobactam (Sod 4.5 gm/ Sodium Chloride) 100 mls @ 200 mls/hr IV Q6H [facility] Last Admin: 02/12/17 19:51 Dose: Not Given Piperacillin Sod/Tazobactam (Sod 4.5 gm/ Sodium Chloride) 100 mls @ 200 mls/hr IV ONETIME ONE Stop: 02/12/17 20:14 Last Admin: 02/12/17 19:44 Dose: 200 mls/hr Lactated Ringer's (Ringers, Lactated) 1,000 mls @ 250 mls/hr IV ASDIRECTED [facility] Stop: 02/13/17 07:54 Last Admin: 02/13/17 07:58 Dose: 250 mls/hr Lactated Ringer's (Ringers, Lactated) 1,000 mls @ 70 mls/hr IV ASDIRECTED [facility] Last Infusion: 02/13/17 15:05 Dose: 70 mls/hr Magnesium Sulfate 2 gm/ Premix 50 mls @ 25 mls/hr IV ONETIME ONE Stop: 02/13/17 16:59 Last Admin: 02/13/17 14:10 Dose: 25 mls/hr Levalbuterol HCl (Xopenex) 1.25 mg NEB QID [facility] Non-Formulary Medication (L.Acidoph,Paracasei, B.Lactis [Probiotic]) 1 cap PO DAILY PRN PRN Reason: Diarrhea Pantoprazole Sodium (Protonix Iv) 40 mg IVPUSH DAILY [facility] Last Admin: 02/13/17 08:05 Dose: 40 mg Potassium Chloride (Potassium Chloride Solution) 40 meq PO TID [facility] Potassium Chloride (Klor-Con M20) 40 meq PO TID [facility] Last Admin: 02/14/17 08:19 Dose: 40 meq - Exam Quality Assessment: DVT prophylaxis (stopped lovenox, on TEDS only) General: alert, oriented, cooperative, no acute distress HEENT: Pupils equal, Pupils reactive, EOMI Neck: supple, trachea midline, no JVD Lungs: Clear to auscultation, Normal respiratory effort Cardiovascular: Regular Rate, Tachycardia (with exertion) Abdomen: bowel sounds present, soft, no tenderness, no distension (Female) Exam: Deferred Back Exam: normal inspection Extremities: no edema Skin: warm Neurological: no new focal deficit, normal gait, normal speech Psy/Mental Status: alert, normal affect, normal mood - Problem List & Annotations (1) Dehydration SNOMED Code(s): 93769688 Code(s): E86.0 - DEHYDRATION Status: Acute Current Visit: Yes (2) Pneumonia SNOMED Code(s): 575861283 Code(s): J18.9 - PNEUMONIA, UNSPECIFIED ORGANISM Status: Acute Current Visit: Yes Qualifiers: Pneumonia type: due to unspecified organism Laterality: right Lung location: upper lobe of lung Qualified Code(s): J18.1 - Lobar pneumonia, unspecified organism (3) Abdominal pain SNOMED Code(s): 96311017 Code(s): R10.9 - UNSPECIFIED ABDOMINAL PAIN Status: Acute Current Visit: No (4) Acute febrile illness SNOMED Code(s): 362389506 Code(s): R50.9 - FEVER, UNSPECIFIED Status: Acute Current Visit: No - Problem List Review Problem List Initiated/Reviewed/Updated: Yes - My Orders Last 24 Hours: My Active Orders 02/13/17 20:44 Acetaminophen [Tylenol] 650 mg PO Q6H PRN 02/14/17 07:00 Pantoprazole [ProTONIX] 40 mg PO DAILY@0700 02/14/17 09:00 Metoprolol Tartrate [Lopressor] 25 mg PO Q12HR 02/14/17 09:39 Sequential Compression Device [OM.PC] Routine 02/14/17 09:40 Antiembolic Devices [RC] PER UNIT ROUTINE 02/14/17 10:19 Potassium Chloride [Klor-Con M20] 60 meq PO TID 02/14/17 10:30 methylPREDNISolone Sod Succ [Solu-MEDROL] 40 mg IVPUSH Q8H 02/14/17 11:00 Sodium Chloride 0.9% [Normal Saline] 1,000 ml IV ASDIRECTED 02/15/17 05:00 BMP [BASIC METABOLIC PANEL,BMP] [CHEM] DAILY CBC WITH AUTO DIFF [HEME] DAILY CRP [C-REACTIVE PROTEIN] [CHEM] DAILY MAGNESIUM [CHEM] DAILY 02/16/17 05:00 BMP [BASIC METABOLIC PANEL,BMP] [CHEM] DAILY CBC WITH AUTO DIFF [HEME] DAILY - Plan Plan:: Impression/Plan: Afebrile [place] Fever, will continue Diflucan, coccido is pending; extensive respiratory panel, negative. Strep pneumo/mycoplasma/Legionella are all negative Stop Levoquin ansd Zosyn Hydration with 0.9 NS, stopped LR Solumedrol 40 mg IV Q 8 H Antiemetic q 6 and q 8 as needed. Nebs: Xopenex/Albuterol Episodes of ST with ambulation Tylenol/NSAID Start clear liquids, advance as tolerated. DVT/GI prophylaxis
[2017-02-14] MEDS ORDERED: Magnesium Sulfate/Water 2 GM in Premix Bag 1 BAG IV ONE ×2 (15:00→18:00)
[2017-02-15] MEDS: Sodium Chloride 0.9% 1,000 ML IV SCH ×2 (00:02→14:14)
[2017-02-15] MEDS: methylPREDNISolone Sodium Succinate 40 MG/1 ML SDV IVPUSH SCH ×3 (02:01→18:14)
[2017-02-15] MEDS: Metoprolol Tartrate 25 MG Tab PO SCH ×2 (06:28→18:14)
[2017-02-15] MEDS: Levothyroxine 88 MCG Tab PO SCH (06:29)
[2017-02-15] MEDS: Pantoprazole 40 MG Tab.CR PO SCH (06:29)
[2017-02-15] MEDS: Benzonatate 100 MG Cap PO SCH ×3 (09:07→21:44)
[2017-02-15] MEDS: Saccharomyces Boulardii (Probiotic) 250 MG Cap PO SCH (09:07)
--- NOTE | 2017-02-15 09:37 | CR ---
Chest: 2 views of the chest were obtained. Comparison: Previous chest x-ray of 12/27/15. Slight atelectasis within the left base is seen. Lungs otherwise are clear. Heart size and mediastinum are normal. Bony structures are unremarkable for the patient's age. Surgical clips are seen within the upper abdomen. Impression: 1. Slight atelectasis within the left base. Nothing acute is appreciated on 2 view chest x-ray. Diagnostic code #2
[2017-02-15] MEDS: Potassium Chloride 20 MEQ Tab.ER PO SCH (12:39)
--- NOTE | 2017-02-15 13:34 | PCM.PN ---
- General Info Date of Service: 02/15/17 Functional Status: Reports: tolerating diet, ambulating, urinating - Review of Systems General: Reports: No Symptoms HEENT: Reports: no symptoms Pulmonary: Reports: no symptoms Cardiovascular: Reports: No Symptoms Gastrointestinal: Reports: No symptoms Genitourinary: Reports: no symptoms Musculoskeletal: Reports: no symptoms Skin: Reports: no symptoms Neurological: Reports: No Symptoms Psychiatric: Reports: no symptoms - Patient Data Vitals - most recent: Last Vital Signs Temp 36.7 C 02/15/17 08:24 Pulse 62 02/15/17 08:24 Resp 18 02/15/17 08:24 BP 118/75 02/15/17 08:24 Pulse Ox 93 L 02/15/17 08:24 Weight - most recent: 82.191 kg I&O - last 24 hours: Intake & Output 02/14/17 02/15/17 02/15/17 22:59 06:59 14:59 Intake Total 1060 1570 240 Output Total 400 621 Balance 660 949 240 Lab Results last 24 hrs: Laboratory Results - last 24 hr 02/15/17 02/15/17 02/15/17 Range/Units 06:09 06:09 11:55 WBC 1.96 L* 3.34 L (3.98-10.04) K/mm3 RBC 3.52 L (3.98-5.22) M/mm3 Hgb 10.5 L (11.2-15.7) gm/L Hct 31.7 L (34.1-44.9) % MCV 90.1 (79.4-94.8) fl MCH 29.8 (25.6-32.2) pg MCHC 33.1 (32.2-35.5) g/dl RDW Std Deviation 42.6 (36.4-46.3) fL Plt Count 85 L (182-369) K/mm3 MPV 11.0 (9.4-12.3) fl Neut % (Auto) 64.8 (34.0-71.1) % Lymph % (Auto) 28.6 (19.3-51.7) % [place] % (Auto) 6.1 (4.7-12.5) % Eos % (Auto) 0 L (0.7-5.8) Baso % (Auto) 0.5 (0.1-1.2) % Neut # (Auto) 1.27 L (1.56-6.13) K/mm3 Lymph # (Auto) 0.56 L (1.18-3.74) K/mm3 [place] # (Auto) 0.12 L (0.24-0.36) K/mm3 Eos # (Auto) 0.00 L (0.04-0.36) K/mm3 Baso # (Auto) 0.01 (0.01-0.08) K/mm3 Manual Slide Review Abnormal smear Sodium 139 (136-145) mEq/L Potassium 4.2 (3.5-5.1) mEq/L Chloride 107 (98-107) mEq/L Carbon Dioxide 24 (21-32) mEq/L Anion Gap 12.2 (5-15) BUN 9 (7-18) mg/dL Creatinine 0.8 (0.55-1.02) mg/dL Est Cr Clr Drug Dosing 69.59 mL/min Estimated GFR (MDRD) > 60 (>60) mL/min BUN/Creatinine Ratio 11.3 L (14-18) Glucose 134 H (74-106) mg/dL Calcium 8.1 L (8.5-10.1) mg/dL Magnesium 1.9 (1.8-2.4) mg/dl C-Reactive Protein 1.0 (<1.0) mg/dL Med Orders - Current: Current Medications Acetaminophen (Tylenol) 650 mg PO Q6H PRN PRN Reason: Fever Last Admin: 02/13/17 21:11 Dose: 650 mg Albuterol (Proventil Neb Soln) 2.5 mg NEB Q4HR PRN PRN Reason: Shortness of Breath Benzonatate (Tessalon Perles) 200 mg PO TID [facility] Last Admin: 02/15/17 09:07 Dose: 200 mg Promethazine HCl 12.5 mg/ (Sodium Chloride) 50.5 mls @ 100 mls/hr IV Q6H PRN PRN Reason: Nausea/Vomiting Sodium Chloride (Normal Saline) 1,000 mls @ 70 mls/hr IV ASDIRECTED [facility] Last Admin: 02/15/17 00:02 Dose: 70 mls/hr Ibuprofen (Motrin) 600 mg PO Q8H PRN PRN Reason: Pain Last Admin: 02/13/17 08:05 Dose: 600 mg Levothyroxine Sodium (Synthroid) 88 mcg PO DAILY@0600 [facility] Last Admin: 02/15/17 06:29 Dose: 88 mcg Methylprednisolone Sodium Succinate (Solu-Medrol) 40 mg IVPUSH Q8H [facility] Last Admin: 02/15/17 10:59 Dose: 40 mg Metoprolol Tartrate (Lopressor) 25 mg PO BID@0700,1900 [facility] Last Admin: 02/15/17 06:28 Dose: 25 mg Ondansetron HCl (Zofran) 4 mg IVPUSH Q8H PRN PRN Reason: Nausea/Vomiting Last Admin: 02/14/17 10:33 Dose: 4 mg Pantoprazole Sodium (Protonix) 40 mg PO DAILY@0700 [facility] Last Admin: 02/15/17 06:29 Dose: 40 mg Potassium Chloride (Klor-Con M20) 60 meq PO TID [facility] Last Admin: 02/15/17 12:39 Dose: Not Given Promethazine HCl/Codeine (Phenergan With Codeine) 10 ml PO Q6HR PRN PRN Reason: Cough Saccharomyces Boulardii (Florastor) 500 mg PO DAILY [facility] Last Admin: 02/15/17 09:07 Dose: 500 mg Discontinued Medications Acetaminophen (Tylenol) 975 mg PO NOW ONE Stop: 02/12/17 17:42 Last Admin: 02/12/17 18:05 Dose: 975 mg Acetaminophen (Tylenol Solution) 650 mg PO Q6H PRN PRN Reason: Fever Enoxaparin Sodium (Lovenox) 40 mg SUBCUT DAILY [facility] Last Admin: 02/14/17 10:42 Dose: Not Given Fluconazole (Diflucan) 200 mg PO BID [facility] Fluconazole (Diflucan) 200 mg PO BID [facility] Last Admin: 02/14/17 20:32 Dose: 200 mg Lactated Ringer's (Ringers, Lactated) 1,000 mls @ 1,000 mls/hr IV .BOLUS ONE Stop: 02/12/17 17:19 Last Admin: 02/12/17 16:32 Dose: 1,000 mls/hr Fluconazole/Sodium Chloride (200 mg/ Premix) 100 mls @ 100 mls/hr IV ONETIME ONE Stop: 02/12/17 17:45 Last Admin: 02/12/17 17:05 Dose: 100 mls/hr Lactated Ringer's (Ringers, Lactated) 1,000 mls @ 999 mls/hr IV ASDIRECTED [facility] Last Admin: 02/12/17 22:53 Dose: 999 mls/hr Levofloxacin/Dextrose 750 mg/ (Premix) 150 mls @ 100 mls/hr IV Q24H [facility] Last Admin: 02/14/17 08:17 Dose: 100 mls/hr Piperacillin Sod/Tazobactam (Sod 4.5 gm/ Sodium Chloride) 100 mls @ 200 mls/hr IV Q6H [facility] Last Admin: 02/12/17 19:51 Dose: Not Given Piperacillin Sod/Tazobactam (Sod 4.5 gm/ Sodium Chloride) 100 mls @ 25 mls/hr IV Q8H [facility] Last Admin: 02/14/17 10:41 Dose: 25 mls/hr Piperacillin Sod/Tazobactam (Sod 4.5 gm/ Sodium Chloride) 100 mls @ 200 mls/hr IV ONETIME ONE Stop: 02/12/17 20:14 Last Admin: 02/12/17 19:44 Dose: 200 mls/hr Lactated Ringer's (Ringers, Lactated) 1,000 mls @ 250 mls/hr IV ASDIRECTED [facility] Stop: 02/13/17 07:54 Last Admin: 02/13/17 07:58 Dose: 250 mls/hr Lactated Ringer's (Ringers, Lactated) 1,000 mls @ 70 mls/hr IV ASDIRECTED [facility] Last Infusion: 02/13/17 15:05 Dose: 70 mls/hr Magnesium Sulfate 2 gm/ Premix 50 mls @ 25 mls/hr IV ONETIME ONE Stop: 02/13/17 16:59 Last Admin: 02/13/17 14:10 Dose: 25 mls/hr Magnesium Sulfate 2 gm/ Premix 50 mls @ 25 mls/hr IV ONETIME ONE Stop: 02/14/17 19:59 Magnesium Sulfate 2 gm/ Premix 50 mls @ 25 mls/hr IV ONETIME ONE Stop: 02/14/17 16:59 Last Admin: 02/14/17 15:11 Dose: 25 mls/hr Levalbuterol HCl (Xopenex) 1.25 mg NEB QID [facility] Levalbuterol HCl (Xopenex) 1.25 mg NEB QIDRT [facility] Last Admin: 02/14/17 15:53 Dose: 1.25 mg Levothyroxine Sodium (Synthroid) 88 mcg PO DAILY [facility] Last Admin: 02/14/17 08:20 Dose: 88 mcg Metoprolol Tartrate (Lopressor) 25 mg PO Q12HR [facility] Last Admin: 02/14/17 19:03 Dose: 25 mg Non-Formulary Medication (L.Acidoph,Paracasei, B.Lactis [Probiotic]) 1 cap PO DAILY PRN PRN Reason: Diarrhea Pantoprazole Sodium (Protonix Iv) 40 mg IVPUSH DAILY [facility] Last Admin: 02/13/17 08:05 Dose: 40 mg Potassium Chloride (Potassium Chloride Solution) 40 meq PO TID [facility] Potassium Chloride (Klor-Con M20) 40 meq PO TID [facility] Last Admin: 02/14/17 08:19 Dose: 40 meq - Exam Quality Assessment: DVT prophylaxis General: alert, oriented, cooperative, no acute distress HEENT: Pupils equal, Pupils reactive, EOMI Neck: supple, trachea midline, no JVD Lungs: Normal respiratory effort Cardiovascular: Regular Rate, Regular Rhythm Abdomen: bowel sounds present, soft, no tenderness, no distension (Female) Exam: Deferred Back Exam: normal inspection Extremities: normal pulses Skin: warm, dry Neurological: no new focal deficit, normal gait, normal speech Psy/Mental Status: alert, normal affect, normal mood - Problem List & Annotations (1) Dehydration SNOMED Code(s): 64522762 Code(s): E86.0 - DEHYDRATION Status: Resolved Current Visit: Yes (2) Pneumonia SNOMED Code(s): 769835115 Code(s): J18.9 - PNEUMONIA, UNSPECIFIED ORGANISM Status: Suspected Current Visit: Yes Qualifiers: Pneumonia type: due to unspecified organism Laterality: right Lung location: upper lobe of lung Qualified Code(s): J18.1 - Lobar pneumonia, unspecified organism (3) Abdominal pain SNOMED Code(s): 95156591 Code(s): R10.9 - UNSPECIFIED ABDOMINAL PAIN Status: Resolved Current Visit: No (4) Acute febrile illness SNOMED Code(s): 704554987 Code(s): R50.9 - FEVER, UNSPECIFIED Status: Resolved Current Visit: No (5) Neutropenia SNOMED Code(s): 618323085 Code(s): D70.9 - NEUTROPENIA, UNSPECIFIED Status: Suspected Current Visit : Yes - Problem List Review Problem List Initiated/Reviewed/Updated: Yes - My Orders Last 24 Hours: My Active Orders 02/14/17 16:33 Ambulate [RC] ASDIRECTED 02/15/17 06:00 Levothyroxine [Synthroid] 88 mcg PO DAILY@0600 02/15/17 07:00 Metoprolol Tartrate [Lopressor] 25 mg PO BID@0700,1900 02/15/17 07:05 Isolation [COMM] Routine 02/16/17 05:00 BMP [BASIC METABOLIC PANEL,BMP] [CHEM] DAILY CBC WITH AUTO DIFF [HEME] DAILY - Plan Plan:: Impression/Plan: Afebrile, but had a drop in WBCs, repeated labs to confirm decrease in WBCs and need for reverse isolation; cancelled reverse isolation after repeat lab draw at noon was low normal . [place] Fever, stopped Diflucan, coccido is pending; extensive respiratory panel, negative. Strep pneumo/mycoplasma/Legionella are all negative Stopped Levoquin ansd Zosyn Hydration with 0.9 NS, stopped LR Solumedrol 40 mg IV Q 8 H Antiemetic q 6 and q 8 as needed . Nebs: Xopenex/Albuterol changed to prn Episodes of ST with ambulation resolved after hydration and Lopressor 25 mg BID Tylenol/NSAID Tolerating regular diet . DVT/GI prophylaxis DC 24 hours if labs remain stable.
[2017-02-16] MEDS: methylPREDNISolone Sodium Succinate 40 MG/1 ML SDV IVPUSH SCH (02:54)
[2017-02-16] MEDS: Sodium Chloride 0.9% 1,000 ML IV SCH (04:51)
[2017-02-16] MEDS: Levothyroxine 88 MCG Tab PO SCH (06:15)
[2017-02-16] MEDS: Metoprolol Tartrate 25 MG Tab PO SCH (06:56)
--- NOTE | 2017-02-16 08:29 | PCM.DCSUM1 ---
Discharge Summary - Hospital Course Free Text/Narrative:: 51 year old [place] with recent travel, empirically treated for atypical pneumonia; all resp panels wer negative. Await results of coccidomycosis is pending. Patient developed a rash, has had remote response to Levoquin which was not listed as an allergy. Also had been on Zosyn as well as Diflucan for anti- fungal. Was started on solumedrol, and will be DCd on tapering Prednisone. Primary Dx URI, unspecified [place] Fever, lab results are pending Neutropenia Inappropriate sinus tach Activty As tolerated Meds Prednisone 10mg, taper Lopressor 25 mg BID Restart Diflucan or equivalent if Coccido is positive Follow Up PCP 1-2 weeks - Discharge Data Discharge Date: 02/16/17 Discharge Disposition: Home, Self-Care 01 Condition: Good - Discharge Diagnosis/Problem(s) (1) Dehydration SNOMED Code(s): 36556333 ICD Code: E86.0 - DEHYDRATION Status: Resolved Current Visit: Yes (2) Pneumonia SNOMED Code(s): 191879738 ICD Code: J18.9 - PNEUMONIA, UNSPECIFIED ORGANISM Status: Suspected Current Visit: Yes Qualifiers: Pneumonia type: due to unspecified organism Laterality: right Lung location: upper lobe of lung Qualified Code(s): J18.1 - Lobar pneumonia, unspecified organism (3) Abdominal pain SNOMED Code(s): 62745726 ICD Code: R10.9 - UNSPECIFIED ABDOMINAL PAIN Status: Resolved Current Visit: No (4) Acute febrile illness SNOMED Code(s): 077131676 ICD Code: R50.9 - FEVER, UNSPECIFIED Status: Resolved Current Visit: No (5) Neutropenia SNOMED Code(s): 754496856 ICD Code: D70.9 - NEUTROPENIA, UNSPECIFIED Status: Resolved Current Visit : Yes - Patient Instructions Diet: Usual Diet as Tolerated Activity: As Tolerated Driving: May Drive Today Showering/Bathing: May Shower Notify Provider of: Fever, Increased Pain, Nausea and/or Vomiting - Discharge Plan Prescriptions/Med Rec: Metoprolol Tartrate [Lopressor] 25 mg PO Q12HR #60 tablet Home Medications: Home Meds Levothyroxine Sodium [Synthroid] 1 tab PO DAILY 01/22/15 [History] Acetaminophen [Tylenol] 500 mg PO Q6H PRN 02/12/17 [History] Benzonatate 200 mg PO Q4H PRN 02/12/17 [History] Ibuprofen 200 mg PO Q4H PRN 02/12/17 [History] L.acidoph,Paracasei, B.lactis [Probiotic] 1 cap PO DAILY PRN 02/12/17 [History] Metoprolol Tartrate [Lopressor] 25 mg PO Q12HR #60 tablet 02/16/17 [Rx] Patient Handouts: Coccidioidomycosis, Community-Acquired Pneumonia, Adult, Easy -to-Read Forms: ED Department Discharge Referrals: Carmen Oquendo, HEALTH INFORMATION MANAGEMENT DIRECTOR [Primary Care Provider] - - Discharge Summary/Plan Comment DC Time >30 min.: No - General Info Date of Service: 02/12/17 Functional Status: Reports: pain controlled, tolerating diet, ambulating, urinating - Review of Systems General: Reports: No Symptoms HEENT: Reports: no symptoms Pulmonary: Reports: no symptoms Cardiovascular: Reports: No Symptoms Gastrointestinal: Reports: No symptoms Genitourinary: Reports: no symptoms Musculoskeletal: Reports: no symptoms Skin: Reports: no symptoms Neurological: Reports: No Symptoms Psychiatric: Reports: no symptoms - Patient Data Vitals - Most Recent: Last Vital Signs Temp 36.3 C 02/16/17 03:09 Pulse 76 02/16/17 06:56 Resp 16 02/16/17 03:09 BP 107/75 02/16/17 06:56 Pulse Ox 95 02/16/17 03:09 Weight - Most Recent: 84.051 kg I&O - Last 24 hours: Intake & Output 02/15/17 02/16/17 02/16/17 22:59 06:59 14:59 Intake Total 1910 1000 Output Total 400 600 Balance 1510 400 Lab Results - Last 24 hrs: Laboratory Results - last 24 hr 02/15/17 02/16/17 02/16/17 Range/Units 11:55 06:00 06:00 WBC 3.34 L 4.47 (3.98-10.04) K/mm3 RBC 3.41 L (3.98-5.22) M/mm3 Hgb 10.1 L (11.2-15.7) gm/L Hct 31.9 L (34.1-44.9) % MCV 93.5 (79.4-94.8) fl MCH 29.6 (25.6-32.2) pg MCHC 31.7 L (32.2-35.5) g/dl RDW Std Deviation 44.8 (36.4-46.3) fL Plt Count 102 L (182-369) K/mm3 MPV 11.0 (9.4-12.3) fl Neut % (Auto) 79.2 H (34.0-71.1) % Lymph % (Auto) 17.2 L (19.3-51.7) % Carson % (Auto) 3.4 L (4.7-12.5) % Eos % (Auto) 0 L (0.7-5.8) Baso % (Auto) 0.0 L (0.1-1.2) % Neut # (Auto) 3.54 (1.56-6.13) K/mm3 Lymph # (Auto) 0.77 L (1.18-3.74) K/mm3 Carson # (Auto) 0.15 L (0.24-0.36) K/mm3 Eos # (Auto) 0.00 L (0.04-0.36) K/mm3 Baso # (Auto) 0.00 L (0.01-0.08) K/mm3 Sodium 141 (136-145) mEq/L Potassium 3.9 (3.5-5.1) mEq/L Chloride 110 H (98-107) mEq/L Carbon Dioxide 23 (21-32) mEq/L Anion Gap 11.9 (5-15) BUN 17 (7-18) mg/dL Creatinine 0.8 (0.55-1.02) mg/dL Est Cr Clr Drug Dosing 69.59 mL/min Estimated GFR (MDRD) > 60 (>60) mL/min BUN/Creatinine Ratio 21.3 H (14-18) Glucose 122 H (74-106) mg/dL Calcium 8.1 L (8.5-10.1) mg/dL Med Orders - Current: Current Medications Acetaminophen (Tylenol) 650 mg PO Q6H PRN PRN Reason: Fever Last Admin: 02/13/17 21:11 Dose: 650 mg Albuterol (Proventil Neb Soln) 2.5 mg NEB Q4HR PRN PRN Reason: Shortness of Breath Benzonatate (Tessalon Perles) 200 mg PO TID [facility] Last Admin: 02/15/17 21:44 Dose: 200 mg Promethazine HCl 12.5 mg/ (Sodium Chloride) 50.5 mls @ 100 mls/hr IV Q6H PRN PRN Reason: Nausea/Vomiting Sodium Chloride (Normal Saline) 1,000 mls @ 70 mls/hr IV ASDIRECTED [facility] Last Admin: 02/16/17 04:51 Dose: 70 mls/hr Ibuprofen (Motrin) 600 mg PO Q8H PRN PRN Reason: Pain Last Admin: 02/13/17 08:05 Dose: 600 mg Levothyroxine Sodium (Synthroid) 88 mcg PO DAILY@0600 [facility] Last Admin: 02/16/17 06:15 Dose: 88 mcg Metoprolol Tartrate (Lopressor) 25 mg PO BID@0700,1900 [facility] Last Admin: 02/16/17 06:56 Dose: 25 mg Ondansetron HCl (Zofran) 4 mg IVPUSH Q8H PRN PRN Reason: Nausea/Vomiting Last Admin: 02/14/17 10:33 Dose: 4 mg Pantoprazole Sodium (Protonix) 40 mg PO DAILY@0700 [facility] Last Admin: 02/15/17 06:29 Dose: 40 mg Promethazine HCl/Codeine (Phenergan With Codeine) 10 ml PO Q6HR PRN PRN Reason: Cough Saccharomyces Boulardii (Florastor) 500 mg PO DAILY [facility] Last Admin: 02/15/17 09:07 Dose: 500 mg Discontinued Medications Acetaminophen (Tylenol) 975 mg PO NOW ONE Stop: 02/12/17 17:42 Last Admin: 02/12/17 18:05 Dose: 975 mg Acetaminophen (Tylenol Solution) 650 mg PO Q6H PRN PRN Reason: Fever Enoxaparin Sodium (Lovenox) 40 mg SUBCUT DAILY [facility] Last Admin: 02/14/17 10:42 Dose: Not Given Fluconazole (Diflucan) 200 mg PO BID [facility] Fluconazole (Diflucan) 200 mg PO BID [facility] Last Admin: 02/14/17 20:32 Dose: 200 mg Lactated Ringer's (Ringers, Lactated) 1,000 mls @ 1,000 mls/hr IV .BOLUS ONE Stop: 02/12/17 17:19 Last Admin: 02/12/17 16:32 Dose: 1,000 mls/hr Fluconazole/Sodium Chloride (200 mg/ Premix) 100 mls @ 100 mls/hr IV ONETIME ONE Stop: 02/12/17 17:45 Last Admin: 02/12/17 17:05 Dose: 100 mls/hr Lactated Ringer's (Ringers, Lactated) 1,000 mls @ 999 mls/hr IV ASDIRECTED [facility] Last Admin: 02/12/17 22:53 Dose: 999 mls/hr Levofloxacin/Dextrose 750 mg/ (Premix) 150 mls @ 100 mls/hr IV Q24H [facility] Last Admin: 02/14/17 08:17 Dose: 100 mls/hr Piperacillin Sod/Tazobactam (Sod 4.5 gm/ Sodium Chloride) 100 mls @ 200 mls/hr IV Q6H [facility] Last Admin: 02/12/17 19:51 Dose: Not Given Piperacillin Sod/Tazobactam (Sod 4.5 gm/ Sodium Chloride) 100 mls @ 25 mls/hr IV Q8H [facility] Last Admin: 02/14/17 10:41 Dose: 25 mls/hr Piperacillin Sod/Tazobactam (Sod 4.5 gm/ Sodium Chloride) 100 mls @ 200 mls/hr IV ONETIME ONE Stop: 02/12/17 20:14 Last Admin: 02/12/17 19:44 Dose: 200 mls/hr Lactated Ringer's (Ringers, Lactated) 1,000 mls @ 250 mls/hr IV ASDIRECTED [facility] Stop: 02/13/17 07:54 Last Admin: 02/13/17 07:58 Dose: 250 mls/hr Lactated Ringer's (Ringers, Lactated) 1,000 mls @ 70 mls/hr IV ASDIRECTED [facility] Last Infusion: 02/13/17 15:05 Dose: 70 mls/hr Magnesium Sulfate 2 gm/ Premix 50 mls @ 25 mls/hr IV ONETIME ONE Stop: 02/13/17 16:59 Last Admin: 02/13/17 14:10 Dose: 25 mls/hr Magnesium Sulfate 2 gm/ Premix 50 mls @ 25 mls/hr IV ONETIME ONE Stop: 02/14/17 19:59 Magnesium Sulfate 2 gm/ Premix 50 mls @ 25 mls/hr IV ONETIME ONE Stop: 02/14/17 16:59 Last Admin: 02/14/17 15:11 Dose: 25 mls/hr Levalbuterol HCl (Xopenex) 1.25 mg NEB QID [facility] Levalbuterol HCl (Xopenex) 1.25 mg NEB QIDRT [facility] Last Admin: 02/14/17 15:53 Dose: 1.25 mg Levothyroxine Sodium (Synthroid) 88 mcg PO DAILY [facility] Last Admin: 02/14/17 08:20 Dose: 88 mcg Methylprednisolone Sodium Succinate (Solu-Medrol) 40 mg IVPUSH Q8H [facility] Last Admin: 02/16/17 02:54 Dose: 40 mg Metoprolol Tartrate (Lopressor) 25 mg PO Q12HR [facility] Last Admin: 02/14/17 19:03 Dose: 25 mg Non-Formulary Medication (L.Acidoph,Paracasei, B.Lactis [Probiotic]) 1 cap PO DAILY PRN PRN Reason: Diarrhea Pantoprazole Sodium (Protonix Iv) 40 mg IVPUSH DAILY [facility] Last Admin: 02/13/17 08:05 Dose: 40 mg Potassium Chloride (Potassium Chloride Solution) 40 meq PO TID [facility] Potassium Chloride (Klor-Con M20) 40 meq PO TID [facility] Last Admin: 02/14/17 08:19 Dose: 40 meq Potassium Chloride (Klor-Con M20) 60 meq PO TID [facility] Last Admin: 02/15/17 12:39 Dose: Not Given - Exam Quality Assessment: Reports: DVT prophylaxis General: Reports: alert, oriented, cooperative, no acute distress HEENT: Reports: Pupils equal, Pupils reactive, EOMI Neck: Reports: supple, trachea midline, no JVD Lungs: Reports: Clear to auscultation, Normal respiratory effort Cardiovascular: Reports: Regular Rate, Regular Rhythm Abdomen: Reports: bowel sounds present, soft, no tenderness, no distension (Female) Exam: Deferred Rectal (Female) Exam: Deferred Back Exam: Reports: normal inspection Extremities: Reports: no edema, normal pulses Skin: Reports: warm Neurological: Reports: no new focal deficit, normal gait, normal speech Psy/Mental Status: Reports: alert, normal affect, normal mood *Q Meaningful Use (DIS) - VTE *Q VTE Criteria *Q: - Stroke *Q Stroke Criteria *Q: - AMI *Q AMI Criteria *Q:
[2017-02-16 08:59] VITALS: BP 102/61
[2017-02-16] MEDS: Benzonatate 100 MG Cap PO SCH (09:01)
[2017-02-16] MEDS: Pantoprazole 40 MG Tab.CR PO SCH (09:01)
[2017-02-16] MEDS: Saccharomyces Boulardii (Probiotic) 250 MG Cap PO SCH (09:01)
== END 2017-02-16 10:50 | disposition home or self-care (01) | DRG 139 ==
LOC: JD.ED 15:53 → EEVIPCON 15:53 → JD.MS 18:06
PROVIDERS: ADMIT Internal Medicine Cardiovascular Disease; ATTEND Internal Medicine Cardiovascular Disease
DX: J18.9 Pneumonia, unspecified organism (principal); E86.0 Dehydration; R50.9 Fever, unspecified; D70.9 Neutropenia, unspecified; Z88.2 Allergy status to sulfonamides; Z88.6 Allergy status to analgesic agent; Z79.899 Other long term (current) drug therapy; E78.00 Pure hypercholesterolemia, unspecified; E03.9 Hypothyroidism, unspecified; R10.9 Unspecified abdominal pain
CPT/HCPCS: 36415; 71020; 71020-26; 80048; 83605; 83735; 84443; 85025; 85048; 86140; 86635; 86738; 87040; 87486; 87581; 87633; 87798; 87804; 87899; 94640-76; 94664; 94761; 96361; 96365; 99284; 99285-25; A9270-GY; C9113; J1450; J1650; J1956; J2405; J2543; J2920; J3475; J7030; J7040; J7120

== ENCOUNTER 2020-09-23 11:29 | Emergency (ER) | payer BC ==
[2020-09-23] MEDS ORDERED: Sodium Chloride 0.9% 10 ML Syringe FLUSH PRN (12:02)
[2020-09-23] MEDS ORDERED: Ondansetron 4 MG/2 ML SDV IVPUSH ONE (12:03)
--- NOTE | 2020-09-23 12:04 | EDM.PDOC ---
ED HPI GENERAL MEDICAL PROBLEM - General Chief Complaint: Flank Pain Stated Complaint: FLANK PAIN Time Seen by Provider: 09/23/20 11:51 Source of Information: Reports: Patient, RN Notes Reviewed - History of Present Illness INITIAL COMMENTS - FREE TEXT/NARRATIVE: 55 yr old female with severe L flank pain that started a few hrs ago with a brief episode of discomfort yesterday. Pain starts L back with radiation to L flank and groin similar to prior stones she has had. Mild nausea, no vomiting. No fever or chills. Left Flank Pain Score (Numeric/FACES): 10 Lower Pelvic Pain Score (Numeric/FACES): 5 - Related Data Allergies Allergy/AdvReac Type Severity Reaction Status Date / Time levofloxacin [From Levaquin] Allergy Rash Verified 09/23/20 11:45 morphine Allergy Hives Verified 09/23/20 11:45 Sulfa (Sulfonamide Allergy Hives Verified 09/23/20 11:45 Antibiotics) Home Meds: Home Meds Levothyroxine Sodium [Synthroid] 1 tab PO DAILY 01/22/15 [History] Acetaminophen [Tylenol] 500 mg PO Q6H PRN 02/12/17 [History] Benzonatate 200 mg PO Q4H PRN 02/12/17 [History] Ibuprofen 200 mg PO Q4H PRN 02/12/17 [History] L.acidoph,Paracasei, B.lactis [Probiotic] 1 cap PO DAILY PRN 02/12/17 [History] Metoprolol Tartrate [Lopressor] 75 mg PO Q12HR 11/06/18 [History] Acetaminophen/HYDROcodone [Garfield 325-5 MG] 1 tab PO Q6H PRN #10 tablet 09/23/20 [Rx] Ondansetron [Zofran ODT] 4 mg PO Q8HR PRN #7 tab.dis 09/23/20 [Rx] Past Medical History Cardiovascular History: Reports: High Cholesterol, Other (See Below) Other Cardiovascular History: sinus tachycardia Gastrointestinal History: Reports: Other (See Below) Other Gastrointestinal History: ulcerative colitis Genitourinary History: Reports: Renal Calculus 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: Endocrine/Metabolic History: Reports: Hypothyroidism - Past Surgical History GI Surgical History: Reports: Appendectomy, Cholecystectomy, Other (See Below) Social & Family History - Tobacco Use Tobacco Use Status *Q: Never Tobacco User Second Hand Smoke Exposure: No - Caffeine Use Caffeine Use: Reports: None - Recreational Drug Use Recreational Drug Use: No - Living Situation & Occupation Living situation: Reports: , with Spouse, with Family Occupation: Employed ED ROS GENERAL - Review of Systems Review Of Systems: See Below Constitutional: Denies: Fever, Chills, Diaphoresis HEENT: Reports: No Symptoms Respiratory: Reports: No Symptoms Cardiovascular: Denies: Chest Pain GI/Abdominal: Reports: Abdominal Pain, Nausea. Denies: Vomiting Musculoskeletal: Reports: Back Pain Skin: Reports: No Symptoms Neurological: Reports: No Symptoms ED EXAM, GENERAL - Physical Exam Exam: See Below General Appearance: Alert, Moderate Distress Head: Atraumatic Neck: Supple Respiratory/Chest: No Respiratory Distress GI/Abdominal: Soft, Non-Tender Back Exam: CVA Tenderness (L) Extremities: Normal Inspection, Normal Range of Motion. No: Pedal Edema Skin Exam: Warm, Dry, Normal Color Course - Vital Signs Last Recorded V/S: Last Vital Signs Temp 97.9 F 09/23/20 14:35 Pulse 84 09/23/20 14:35 Resp 18 09/23/20 14:35 BP 129/83 09/23/20 14:35 Pulse Ox 100 09/23/20 14:35 - Orders/Labs/Meds Meds: Medications Discontinued Medications Generic Name Dose Route Start Last Admin Trade Name Freq PRN Reason Stop Dose Admin Hydrocodone Bitart/Acetaminophen 1 tab 09/23/20 14:16 09/23/20 14:37 Garfield 325-5 Mg PO 09/23/20 14:17 1 tab ONETIME ONE Administration Sodium Chloride 1,000 mls @ 999 mls/hr 09/23/20 12:15 09/23/20 12:20 Normal Saline IV 999 mls/hr ONETIME JUSTEN Administration Ketorolac Tromethamine 30 mg 09/23/20 12:15 09/23/20 12:18 Toradol IVPUSH 30 mg ONETIME JUSTEN Administration Ondansetron HCl 4 mg 09/23/20 12:03 09/23/20 12:16 Zofran IVPUSH 09/23/20 12:04 4 mg ONETIME ONE Administration Sodium Chloride 10 ml 09/23/20 12:02 09/23/20 12:20 Saline Flush FLUSH 10 ml ASDIRECTED PRN Administration Keep Vein Open - Re-Assessments/Exams Free Text/Narrative Re-Assessment/Exam: 09/23/20 13:40 Pt has a 3.5 mm L stone at L3-4 level. Good relief of pain from torodol. Discharge instr. as documented. Departure - Departure Time of Disposition: 13:44 Disposition: Home, Self-Care 01 Condition: Fair Clinical Impression: Ureteric colic, Kidney stone on left side - Discharge Information Prescriptions: Acetaminophen/HYDROcodone [Garfield 325-5 MG] 1 tab PO Q6H PRN #10 tablet PRN Reason: Pain Ondansetron [Zofran ODT] 4 mg PO Q8HR PRN #7 tab.dis PRN Reason: Nausea/Vomiting Instructions: Kidney Stones, [id number] Referrals: Ella Urias MD [Primary Care Provider] - Forms: ED Department Discharge Additional Instructions: Continue to strain urine to watch for stone. Continue advil or ibuoprofen 2 to 3 times daily. Tylenol 500 mg along with 1/2,1/3 or 1/2 hydrocodone if needed for further pain relief. Prescriptions sent to [facility]. Follow up clinic if you do not pass this stone within 3 to 4 days. Return to ED as needed. Sepsis Event Note (ED) - Evaluation Sepsis Screening Result: No Definite Risk
[2020-09-23] MEDS ORDERED: Ketorolac 30 MG/ML SDV IVPUSH SCH (12:15)
[2020-09-23] MEDS ORDERED: Sodium Chloride 0.9% 1,000 ML IV SCH (12:15)
[2020-09-23] MEDS ORDERED: Acetaminophen/HYDROcodone 325-5 MG Tab PO ONE (14:16)
[2020-09-23 14:36] VITALS: BP 129/83; PULSE 84
--- NOTE | 2020-09-25 10:22 | CT ---
"PROCEDURE INFORMATION: Exam: CT Abdomen And Pelvis Without Contrast Exam date and time: 09/23/2020 12:11 PM Age: 55 years old Clinical indication: Abdominal pain; Flank; Patient HX: Left sided back px, probable stone TECHNIQUE: Imaging protocol: Computed tomography of the abdomen and pelvis without contrast. COMPARISON: MR Abdomen w wo Cont 11/06/2018 8:13 AM FINDINGS: Liver: Normal. No mass. Gallbladder and bile ducts: Status post cholecystectomy. Pancreas: Normal. No ductal dilation. Spleen: The spleen is mildly prominent. Adrenal glands: Normal. No mass. Kidneys and ureters: Mild left perinephric stranding and hydronephrosis secondary to a 3.5 mm calculus located in the left ureter at the level of L3-L4. Stomach and bowel: Right lower quadrant ostomy with nonobstructing parastomal hernia. Status post colectomy. No obstruction. No mucosal thickening. Appendix: No evidence of appendicitis. Intraperitoneal space: Unremarkable. No free air. No significant fluid collection. Vasculature: Unremarkable. No abdominal aortic aneurysm. Lymph nodes: Unremarkable. No enlarged lymph nodes. Urinary bladder: Unremarkable as visualized. Reproductive: Unremarkable as visualized. Bones/joints: Unremarkable. No acute fracture. IMPRESSION: MARILYN ASHBY | Final Radiology Report CONFIDENTIALITY STATEMENT This report is intended only for use by the referring physician, and only in accordance with law. If you received this in error, call [phone]. Page 2 of 2 1. Mild left perinephric stranding and hydronephrosis secondary to a 3.5 mm calculus located in the left ureter at the level of L3-L4. 2. Remainder of findings as described above. Thank you for allowing us to participate in the care of your patient. Dictated and Authenticated by: Elza Butcher MD 09/23/2020 1:53 PM Central Time ([place] & [place]) [facility]ITAL[facility]n"
== END 2020-09-23 14:45 | disposition home or self-care (01) ==
LOC: JD.ED 11:29
DX: N13.2 Hydronephrosis with renal and ureteral calculous obstruction (principal); E03.9 Hypothyroidism, unspecified; Z88.1 Allergy status to other antibiotic agents; Z88.5 Allergy status to narcotic agent; Z88.2 Allergy status to sulfonamides; Z79.899 Other long term (current) drug therapy
CPT/HCPCS: 74176; 96374; 99284; A9270; J1885; J2405; J7030

== ENCOUNTER 2020-11-11 18:13 | Emergency (ER) | payer BC ==
[2020-11-11 18:30] VITALS: BP 124/93; PULSE 130
[2020-11-11] MEDS ORDERED: Ondansetron 4 MG/2 ML SDV IVPUSH ONE (19:04)
[2020-11-11] MEDS ORDERED: Sodium Chloride 0.9% 1,000 ML IV STA (19:04)
[2020-11-11] MEDS ORDERED: Sodium Chloride 0.9% 10 ML Syringe FLUSH PRN (19:04)
--- NOTE | 2020-11-11 19:10 | EDM.PDOC ---
ED HPI GENERAL MEDICAL PROBLEM - General Chief Complaint: Gastrointestinal Problem Stated Complaint: NAUSEA,DEHYDRATION, Time Seen by Provider: 11/11/20 18:57 Source of Information: Reports: Patient History Limitations: Reports: No Limitations - History of Present Illness INITIAL COMMENTS - FREE TEXT/NARRATIVE: The patient presents with nausea and dehydration. She was recently diagnosed with diverticulosis on by CT scan at [facility]. She was started on Flagyl 500mg TID and Cipro 500mg BID. She does not have any pain but she does have nausea and cannot eat or drink much. He heart rate is fast and she feels like she is dehydrated. She has a history of diverticulitis, ulcerative colitis and she has had many surgeries and she currently has an ileostomy. She had a temp of 100.4 at home. She denies any chest pain or shortness of breath. She does get a slight cough at times. Onset: Gradual Duration: Day(s): Improves with: Reports: None Worsens with: Reports: None Associated Symptoms: Reports: Cough, Fever/Chills, Nausea/Vomiting. Denies: Chest Pain, Headaches, Shortness of Breath - Related Data Allergies Allergy/AdvReac Type Severity Reaction Status Date / Time levofloxacin [From Levaquin] Allergy Rash Verified 11/11/20 18:27 morphine Allergy Hives Verified 11/11/20 18:27 Sulfa (Sulfonamide Allergy Hives Verified 11/11/20 18:27 Antibiotics) Home Meds: Home Meds Levothyroxine Sodium [Synthroid] 1 tab PO DAILY 01/22/15 [History] Acetaminophen [Tylenol] 500 mg PO Q6H PRN 02/12/17 [History] Benzonatate 200 mg PO Q4H PRN 02/12/17 [History] Ibuprofen 200 mg PO Q4H PRN 02/12/17 [History] L.acidoph,Paracasei, B.lactis [Probiotic] 1 cap PO DAILY PRN 02/12/17 [History] Metoprolol Tartrate [Lopressor] 75 mg PO Q12HR 11/06/18 [History] Acetaminophen/HYDROcodone [[place] 325-5 MG] 1 tab PO Q6H PRN #10 tablet 09/23/20 [Rx] Ondansetron [Zofran ODT] 4 mg PO Q8HR PRN #7 tab.dis 09/23/20 [Rx] Ondansetron [Zofran ODT] 4 mg PO Q6H PRN #20 tab.dis 11/11/20 [Rx] Past Medical History Cardiovascular History: Reports: High Cholesterol, Other (See Below) Other Cardiovascular History: sinus tachycardia Gastrointestinal History: Reports: Other (See Below) Other Gastrointestinal History: ulcerative colitis, diverticulitis Genitourinary History: Reports: Renal Calculus 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: Endocrine/Metabolic History: Reports: Hypothyroidism - Past Surgical History GI Surgical History: Reports: Appendectomy, Cholecystectomy, Other (See Below) Other GI Surgeries/Procedures: bowel obstruction sx, removal of colon and most of small bowel, Social & Family History - Tobacco Use Tobacco Use Status *Q: Never Tobacco User Second Hand Smoke Exposure: No - Caffeine Use Caffeine Use: Reports: None - Recreational Drug Use Recreational Drug Use: No - Living Situation & Occupation Living situation: Reports: , with Spouse, with Family Occupation: Employed ED ROS GENERAL - Review of Systems Review Of Systems: See Below Constitutional: Reports: Fever, Chills HEENT: Reports: No Symptoms Respiratory: Reports: Cough. Denies: Shortness of Breath Cardiovascular: Reports: No Symptoms Endocrine: Reports: No Symptoms GI/Abdominal: Reports: Nausea. Denies: Abdominal Pain, Diarrhea, Vomiting : Reports: No Symptoms Musculoskeletal: Reports: No Symptoms ED EXAM, GI/ABD - Physical Exam Exam: See Below Exam Limited By: No Limitations General Appearance: Alert, No Apparent Distress Ears: Normal External Exam Nose: Normal Inspection Head: Atraumatic, Normocephalic Neck: Normal Inspection Respiratory/Chest: No Respiratory Distress, Lungs Clear, Normal Breath Sounds Cardiovascular: No Edema, No Murmur, Tachycardia GI/Abdominal Exam: Soft, Non-Tender, No Organomegaly, No Mass, Other (Ileostomy) Course - Vital Signs Last Recorded V/S: Last Vital Signs Temp 99.1 F 11/11/20 18:24 Pulse 130 H 11/11/20 18:24 Resp 16 11/11/20 18:24 BP 124/93 H 11/11/20 18:24 Pulse Ox 96 11/11/20 18:24 - Orders/Labs/Meds Orders: Active Orders 24 hr Category Date Time Status Peripheral IV Care [RC] . DIRECTED Care 11/11/20 19:04 Active Abdomen Pelvis w Cont [CT] Stat Exams 11/11/20 19:04 Taken Sodium Chloride 0.9% [Normal Saline] 100 ml Med 11/11/20 21:15 Active IV ASDIRECTED Sodium Chloride 0.9% [Saline Flush] Med 11/11/20 19:04 Active 10 ml FLUSH ASDIRECTED PRN Sodium Chloride 0.9% [Saline Flush] Med 11/11/20 21:15 Active 10 ml FLUSH BOLUS ED Antiemetic Medication Reflex [OM.PC] Stat Oth 11/11/20 19:05 Ordered Peripheral IV Insertion Adult [OM.PC] Stat Oth 11/11/20 19:04 Ordered Medication Orders Sodium Chloride (Normal Saline) 100 mls @ 60 mls/hr IV ASDIRECTED JUSTEN Last Admin: 11/11/20 21:13 Dose: 70 mls/hr Documented by: KOMALIN Sodium Chloride (Saline Flush) 10 ml FLUSH ASDIRECTED PRN PRN Reason: Keep Vein Open Last Admin: 11/11/20 19:29 Dose: 10 ml Documented by: OLE Sodium Chloride (Saline Flush) 10 ml FLUSH BOLUS [facility] Last Admin: 11/11/20 21:13 Dose: 10 ml Documented by: KOMALIN Labs: Laboratory Tests 11/11/20 11/11/20 11/11/20 Range/Units 18:32 18:45 18:45 WBC 5.44 (3.98-10.04) K/mm3 RBC 4.49 (3.98-5.22) M/mm3 Hgb 13.2 (11.2-15.7) gm/dl Hct 39.9 (34.1-44.9) % MCV 88.9 (79.4-94.8) fl MCH 29.4 (25.6-32.2) pg MCHC 33.1 (32.2-35.5) g/dl RDW Std Deviation 42.6 (36.4-46.3) fL Plt Count 180 L (182-369) K/mm3 MPV 10.3 (9.4-12.3) fl Neut % (Auto) 74.4 H (34.0-71.1) % Lymph % (Auto) 11.4 L (19.3-51.7) % [place] % (Auto) 13.6 H (4.7-12.5) % Eos % (Auto) 0 L (0.7-5.8) Baso % (Auto) 0.2 (0.1-1.2) % Neut # (Auto) 4.05 (1.56-6.13) K/mm3 Lymph # (Auto) 0.62 L (1.18-3.74) K/mm3 [place] # (Auto) 0.74 H (0.24-0.36) K/mm3 Eos # (Auto) 0.00 L (0.04-0.36) K/mm3 Baso # (Auto) 0.01 (0.01-0.08) K/mm3 ESR (0-20) mm/hr Sodium 130 L D (136-145) mEq/L Potassium 4.1 (3.5-5.1) mEq/L Chloride 98 (98-107) mEq/L Carbon Dioxide 19 L (21-32) mEq/L Anion Gap 17.1 H (5-15) BUN 19 H (7-18) mg/dL Creatinine 1.3 H (0.55-1.02) mg/dL Est Cr Clr Drug Dosing 39.13 mL/min Estimated GFR (MDRD) 43 (>60) mL/min BUN/Creatinine Ratio 14.6 (14-18) Glucose 107 H (74-106) mg/dL Calcium 9.0 (8.5-10.1) mg/dL Total Bilirubin 0.8 (0.2-1.0) mg/dL AST 43 H (15-37) U/L ALT 52 (14-59) U/L Alkaline Phosphatase 109 (46-116) U/L C-Reactive Protein (<1.0) mg/dL Total Protein 8.2 (6.4-8.2) g/dl Albumin 4.2 (3.4-5.0) g/dl Globulin 4.0 gm/dL Albumin/Globulin Ratio 1.1 (1-2) Lipase (73-393) U/L Urine Color Yellow (Yellow) Urine Appearance Clear (Clear) Urine pH 6.0 (5.0-8.0) Ur Specific [place] 1.020 (1.005-1.030) Urine Protein 1+ H (Negative) Urine Glucose (UA) Negative (Negative) Urine Ketones Negative (Negative) Urine Occult Blood Negative (Negative) Urine Nitrite Negative (Negative) Urine Bilirubin Negative (Negative) Urine Urobilinogen 0.2 (0.2-1.0) Ur Leukocyte Esterase Trace H (Negative) U Hyaline Cast (Auto) 0-5 (0-5) /lpf Urine RBC 0-5 (0-5) /hpf Urine WBC 0-5 (0-5) /hpf Ur Squamous Epith Cells 0-5 (0-5) /hpf Urine Bacteria Few (FEW) /hpf Urine Mucus Rare (FEW) /hpf 11/11/20 11/11/20 Range/Units 18:45 18:45 WBC (3.98-10.04) K/mm3 RBC (3.98-5.22) M/mm3 Hgb (11.2-15.7) gm/dl Hct (34.1-44.9) % MCV (79.4-94.8) fl MCH (25.6-32.2) pg MCHC (32.2-35.5) g/dl RDW Std Deviation (36.4-46.3) fL Plt Count (182-369) K/mm3 MPV (9.4-12.3) fl Neut % (Auto) (34.0-71.1) % Lymph % (Auto) (19.3-51.7) % [place] % (Auto) (4.7-12.5) % Eos % (Auto) (0.7-5.8) Baso % (Auto) (0.1-1.2) % Neut # (Auto) (1.56-6.13) K/mm3 Lymph # (Auto) (1.18-3.74) K/mm3 [place] # (Auto) (0.24-0.36) K/mm3 Eos # (Auto) (0.04-0.36) K/mm3 Baso # (Auto) (0.01-0.08) K/mm3 ESR 23 H (0-20) mm/hr Sodium (136-145) mEq/L Potassium (3.5-5.1) mEq/L Chloride (98-107) mEq/L Carbon Dioxide (21-32) mEq/L Anion Gap (5-15) BUN (7-18) mg/dL Creatinine (0.55-1.02) mg/dL Est Cr Clr Drug Dosing mL/min Estimated GFR (MDRD) (>60) mL/min BUN/Creatinine Ratio (14-18) Glucose (74-106) mg/dL Calcium (8.5-10.1) mg/dL Total Bilirubin (0.2-1.0) mg/dL AST (15-37) U/L ALT (14-59) U/L Alkaline Phosphatase (46-116) U/L C-Reactive Protein 1.7 H* (<1.0) mg/dL Total Protein (6.4-8.2) g/dl Albumin (3.4-5.0) g/dl Globulin gm/dL Albumin/Globulin Ratio (1-2) Lipase 440 H (73-393) U/L Urine Color (Yellow) Urine Appearance (Clear) Urine pH (5.0-8.0) Ur Specific [place] (1.005-1.030) Urine Protein (Negative) Urine Glucose (UA) (Negative) Urine Ketones (Negative) Urine Occult Blood (Negative) Urine Nitrite (Negative) Urine Bilirubin (Negative) Urine Urobilinogen (0.2-1.0) Ur Leukocyte Esterase (Negative) U Hyaline Cast (Auto) (0-5) /lpf Urine RBC (0-5) /hpf Urine WBC (0-5) /hpf Ur Squamous Epith Cells (0-5) /hpf Urine Bacteria (FEW) /hpf Urine Mucus (FEW) /hpf Meds: Medications Generic Name Dose Route Start Last Admin Trade Name Lesq PRN Reason Stop Dose Admin Sodium Chloride 100 mls @ 60 mls/hr 11/11/20 21:15 11/11/20 21:13 Normal Saline IV 70 mls/hr ASDIRECTED JUSTEN Administration Sodium Chloride 10 ml 11/11/20 19:04 11/11/20 19:29 Saline Flush FLUSH 10 ml ASDIRECTED PRN Administration Keep Vein Open Sodium Chloride 10 ml 11/11/20 21:15 11/11/20 21:13 Saline Flush FLUSH 10 ml BOLUS JUSTEN Administration Discontinued Medications Generic Name Dose Route Start Last Admin Trade Name Freq PRN Reason Stop Dose Admin Sodium Chloride 1,000 mls @ 1,000 mls/hr 11/11/20 19:04 11/11/20 19:29 Normal Saline IV 11/11/20 20:03 1,000 mls/hr .BOLUS STA Administration Sodium Chloride 1,000 mls @ 1,000 mls/hr 11/11/20 20:31 11/11/20 20:43 Normal Saline IV 11/11/20 21:30 1,000 mls/hr ONETIME ONE Administration Iopamidol 100 ml 11/11/20 21:11 11/11/20 21:13 Isovue-300 (61%) IVPUSH 11/11/20 21:12 100 ml ONETIME ONE Administration Iopamidol 50 ml 11/11/20 21:11 11/11/20 21:13 Isovue-300 (61%) IVPUSH 11/11/20 21:12 50 ml ONETIME ONE Administration Metoclopramide HCl 10 mg 11/11/20 20:32 11/11/20 20:42 Reglan IVPUSH 11/11/20 20:33 10 mg ONETIME ONE Administration Ondansetron HCl 4 mg 11/11/20 19:04 11/11/20 19:29 Zofran IVPUSH 11/11/20 19:05 4 mg ONETIME ONE Administration - Re-Assessments/Exams Free Text/Narrative Re-Assessment/Exam: 11/11/20 19:10 I ordered an IV NS 1L bolus, zofran 4mg IV, labs, UA and a CT of her abdomen and pelvis. 11/11/20 22:01 Her CBC looks good. Her ESR was slightly elevated at 23. Her Na was low at 130. Her anion gap was elevated at 17.1. Her creatinine was elevated at 1.3. Her AST was elevated at 43. Her CRP is elevated at 1.7. Her lipase is slightly elevated at 440. Her UA shows no UTI. She still has nausea. I ordered reglan 10mg IV and another liter of fluid. Her CT shows mild to moderate splenomegaly. That has been seen on prior CTs. She has no diverticulitis now. She should continue the antibiotics though. I will give her a prescription for zofran. Departure - Departure Time of Disposition: 22:15 Disposition: Home, Self-Care 01 Condition: Good Clinical Impression: Elevated lipase, Hyponatremia, Nausea, Dehydration - Discharge Information *PRESCRIPTION DRUG MONITORING PROGRAM REVIEWED*: Not Applicable *COPY OF PRESCRIPTION DRUG MONITORING REPORT IN PATIENT VENANCIO: Not Applicable Prescriptions: Ondansetron [Zofran ODT] 4 mg PO Q6H PRN #20 tab.dis PRN Reason: Nausea\vomiting Referrals: Ella Urias MD [Primary Care Provider] - 1 Week Forms: ED Department Discharge Additional Instructions: Keep taking the antibiotics for 7 days. Take zofran as needed for nausea. Drink plenty of fluids. Advance your diet as tolerated. Please return if you are worse. Sepsis Event Note (ED) - Evaluation Sepsis Screening Result: No Definite Risk - Focused Exam Vital Signs: Vital Signs Temp Pulse Resp BP Pulse Ox 11/11/20 18:24 99.1 F 130 H 16 124/93 H 96 - My Orders Last 24 Hours: My Active Orders 11/11/20 19:04 Peripheral IV Care [RC] . DIRECTED Abdomen Pelvis w Cont [CT] Stat Sodium Chloride 0.9% [Saline Flush] 10 ml FLUSH ASDIRECTED PRN Peripheral IV Insertion Adult [OM.PC] Stat 11/11/20 19:05 ED Antiemetic Medication Reflex [OM.PC] Stat 11/11/20 21:15 Sodium Chloride 0.9% [Normal Saline] 100 ml IV ASDIRECTED Sodium Chloride 0.9% [Saline Flush] 10 ml FLUSH BOLUS - Assessment/Plan Last 24 Hours: My Active Orders 11/11/20 19:04 Peripheral IV Care [RC] . DIRECTED Abdomen Pelvis w Cont [CT] Stat Sodium Chloride 0.9% [Saline Flush] 10 ml FLUSH ASDIRECTED PRN Peripheral IV Insertion Adult [OM.PC] Stat 11/11/20 19:05 ED Antiemetic Medication Reflex [OM.PC] Stat 11/11/20 21:15 Sodium Chloride 0.9% [Normal Saline] 100 ml IV ASDIRECTED Sodium Chloride 0.9% [Saline Flush] 10 ml FLUSH BOLUS
[2020-11-11] MEDS ORDERED: Sodium Chloride 0.9% 1,000 ML IV ONE (20:31)
[2020-11-11] MEDS ORDERED: Metoclopramide 10 MG/2 ML SDV IVPUSH ONE (20:32)
[2020-11-11] MEDS ORDERED: Iopamidol 612 MG/ML 100 ML Bottle IVPUSH ONE (21:11)
[2020-11-11] MEDS ORDERED: Iopamidol 612 MG/ML 50 ML SDV IVPUSH ONE (21:11)
[2020-11-11] MEDS ORDERED: Sodium Chloride 0.9% 100 ML IV SCH (21:15)
[2020-11-11] MEDS ORDERED: Sodium Chloride 0.9% 10 ML Syringe FLUSH SCH (21:15)
--- NOTE | 2020-11-12 10:34 | CT ---
CT abdomen and pelvis Technique: Multiple axial sections were obtained from above the dome of the diaphragm inferiorly through the pubic symphysis. Intravenous contrast was utilized. No oral contrast was given. Delayed images were obtained through the abdomen and pelvis. Reconstructed coronal and sagittal images were also obtained. Comparison: Prior MRI abdomen of 11/06/[address] abdomen and pelvis study of 10/23/12. Findings: Visualized lung bases show nothing acute. Liver shows no focal parenchymal abnormality. Spleen is enlarged with length of 17 cm which is similar to previous studies. Adrenal glands show no nodule. Kidneys show symmetric contrast enhancement without hydronephrosis or mass. Delayed images show contrast within both pelvicalyceal systems and within the ureters. Slight contrast is noted within the bladder. Pancreas appears within normal limits. Slightly dilated CBD is seen with prior cholecystectomy. These findings are stable from prior MRI. Aorta shows no aneurysm. Small retroperitoneal lymph nodes are seen which are believed to be within normal limits. Ostomy is noted within the right lower quadrant from small bowel. No pelvic mass or adenopathy is appreciated. No free fluid or inflammatory change is appreciated. Bone window settings were reviewed which show no acute osseous abnormality. Impression: 1. Splenomegaly which is stable. Other findings as noted above which are also stable. 2. Nothing acute is seen. Diagnostic code #2 I agree with preliminary report from [facility], finalized on 11/11/20, 10:36 PM NUTRITION COORDINATOR
== END 2020-11-11 22:19 | disposition home or self-care (01) ==
LOC: JD.ED 18:13
DX: E87.1 Hypo-osmolality and hyponatremia (principal); E86.0 Dehydration; R74.8 Abnormal levels of other serum enzymes; R11.0 Nausea; E03.9 Hypothyroidism, unspecified; Z79.899 Other long term (current) drug therapy; Z88.1 Allergy status to other antibiotic agents; Z88.5 Allergy status to narcotic agent; Z88.2 Allergy status to sulfonamides
CPT/HCPCS: 36415; 74177; 80053; 81001; 83690; 85025; 85652; 86140; 96374; 96375; 99285; J2405; J2765; J7030; Q9967

== ENCOUNTER 2021-08-11 10:44 | Emergency (ER) | payer BC ==
[2021-08-11 11:38] VITALS: BP 126/97
[2021-08-11] MEDS ORDERED: Sodium Chloride 0.9% 10 ML Syringe FLUSH PRN (12:02)
[2021-08-11] MEDS ORDERED: Sodium Chloride 0.9% 1,000 ML IV STA (12:25)
--- NOTE | 2021-08-11 13:01 | EDM.PDOC ---
ED HPI GENERAL MEDICAL PROBLEM - General Chief Complaint: General Stated Complaint: COVID + Time Seen by Provider: 08/11/21 11:37 Source of Information: Reports: Patient, RN Notes Reviewed History Limitations: Reports: No Limitations - History of Present Illness INITIAL COMMENTS - FREE TEXT/NARRATIVE: Patient is a 56-year-old female presenting to the emergency department for eliezer luation of Covid symptoms. She is concerned that she is likely dehydrated. Reports that symptoms began approximately 5 days ago. Her symptoms have been fairly mild with the worse of them being cough. Denies any significant shortness of breath. She has had some nausea with dry heaving which began yesterday. She has been not been able to take in much fluids since last evening. She has a history of POTS and ulcerative colitis and states that she dehydrates very easily. Denies any fever, chills, or diarrhea. - Related Data Allergies Allergy/AdvReac Type Severity Reaction Status Date / Time levofloxacin [From Levaquin] Allergy Rash Verified 08/11/21 11:21 morphine Allergy Hives Verified 08/11/21 11:21 Sulfa (Sulfonamide Allergy Hives Verified 08/11/21 11:21 Antibiotics) Home Meds: Home Meds Levothyroxine Sodium [Synthroid] 1 tab PO DAILY 01/22/15 [History] Ibuprofen 200 mg PO Q4H PRN 02/12/17 [History] L.acidoph,Paracasei, B.lactis [Probiotic] 1 cap PO DAILY PRN 02/12/17 [History] Ondansetron [Zofran ODT] 4 mg PO Q6H PRN #20 tab.dis 11/11/20 [Rx] Metoprolol Succinate [Toprol Xl] 50 mg PO DAILY 08/11/21 [History] Past Medical History Cardiovascular History: Reports: High Cholesterol, Other (See Below) Other Cardiovascular History: sinus tachycardia Gastrointestinal History: Reports: Other (See Below) Other Gastrointestinal History: ulcerative colitis, diverticulitis Genitourinary History: Reports: Renal Calculus 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: Endocrine/Metabolic History: Reports: Hypothyroidism - Infectious Disease History Infectious Disease History: Reports: Chicken Pox, Novel Coronavirus - Past Surgical History GI Surgical History: Reports: Appendectomy, Cholecystectomy, Other (See Below) Other GI Surgeries/Procedures: bowel obstruction sx, removal of colon and most of small bowel, Social & Family History - Tobacco Use Tobacco Use Status *Q: Never Tobacco User Second Hand Smoke Exposure: No - Caffeine Use Caffeine Use: Reports: Coffee, Tea - Recreational Drug Use Recreational Drug Use: No - Living Situation & Occupation Living situation: Reports: , with Spouse, with Family Occupation: Employed ED ROS GENERAL - Review of Systems Review Of Systems: Comprehensive ROS is negative, except as noted in HPI. ED EXAM, GENERAL - Physical Exam Exam: See Below Exam Limited By: No Limitations General Appearance: Alert, WD/WN, No Apparent Distress Respiratory/Chest: No Respiratory Distress, Lungs Clear, Normal Breath Sounds, No Accessory Muscle Use, Chest Non-Tender Cardiovascular: Normal Peripheral Pulses, Regular Rate, Rhythm, No Edema, No Gallop, No JVD, No Murmur, No Rub, Tachycardia GI/Abdominal: Normal Bowel Sounds, Soft, Non-Tender, No Organomegaly, No Distention, No Abnormal Bruit, No Mass Neurological: Alert, Oriented, CN II-XII Intact, Normal Cognition, Normal Gait, Normal Reflexes, No Motor/Sensory Deficits Psychiatric: Normal Affect, Normal Mood Skin Exam: Warm, Dry, Intact, Normal Color, No Rash #1 Interpretation EKG Date: 08/11/21 Time: 13:12 Rhythm: NSR Rate (Beats/Min): 95 [place]: Normal P-Wave: Present QRS: Normal ST-T: Normal QT: Normal Course - Vital Signs Last Recorded V/S: Last Vital Signs Temp 98.1 F 08/11/21 14:10 Pulse 85 08/11/21 14:10 Resp 20 08/11/21 10:50 BP 126/97 H 08/11/21 10:50 Pulse Ox 98 08/11/21 14:10 - Orders/Labs/Meds Labs: Laboratory Tests 08/11/21 08/11/21 08/11/21 Range/Units 12:45 12:45 12:45 WBC 5.61 (3.98-10.04) K/mm3 RBC 4.57 (3.98-5.22) M/mm3 Hgb 13.9 (11.2-15.7) gm/dl Hct 40.3 (34.1-44.9) % MCV 88.2 (79.4-94.8) fl MCH 30.4 (25.6-32.2) pg MCHC 34.5 (32.2-35.5) g/dl RDW Std Deviation 41.9 (36.4-46.3) fL Plt Count 190 D (182-369) K/mm3 MPV 10.6 (9.4-12.3) fl Neut % (Auto) 64.3 (34.0-71.1) % Lymph % (Auto) 26.4 (19.3-51.7) % [place] % (Auto) 8.7 (4.7-12.5) % Eos % (Auto) 0 L (0.7-5.8) Baso % (Auto) 0.4 (0.1-1.2) % Neut # (Auto) 3.61 (1.56-6.13) K/mm3 Lymph # (Auto) 1.48 (1.18-3.74) K/mm3 [place] # (Auto) 0.49 H (0.24-0.36) K/mm3 Eos # (Auto) 0.00 L (0.04-0.36) K/mm3 Baso # (Auto) 0.02 (0.01-0.08) K/mm3 Sodium 133 L (136-145) mEq/L Potassium 4.3 (3.5-5.1) mEq/L Chloride 100 (98-107) mEq/L Carbon Dioxide 21 (21-32) mEq/L Anion Gap 16.3 H (5-15) BUN 22 H (7-18) mg/dL Creatinine 1.0 (0.55-1.02) mg/dL Est Cr Clr Drug Dosing 51.43 mL/min Estimated GFR (MDRD) 58 (>60) mL/min BUN/Creatinine Ratio 22.0 H (14-18) Glucose 99 (70-99) mg/dL Calcium 8.8 (8.5-10.1) mg/dL Magnesium 2.2 (1.8-2.4) mg/dL Total Bilirubin 0.9 (0.2-1.0) mg/dL AST 48 H (15-37) U/L ALT 48 (14-59) U/L Alkaline Phosphatase 144 H (46-116) U/L C-Reactive Protein <0.2 (<1.0) mg/dL Total Protein 8.4 H (6.4-8.2) g/dl Albumin 4.4 (3.4-5.0) g/dl Globulin 4.0 gm/dL Albumin/Globulin Ratio 1.1 (1-2) Meds: Medications Discontinued Medications Generic Name Dose Route Start Last Admin Trade Name Nimesh PRN Reason Stop Dose Admin Sodium Chloride 1,000 mls @ 999 mls/hr 08/11/21 12:25 08/11/21 12:30 Normal Saline IV 08/11/21 13:25 999 mls/hr NOW STA Administration Sodium Chloride 10 ml 08/11/21 12:02 08/11/21 12:38 Sodium Chloride 0.9% 10 Ml Syringe FLUSH 10 ml ASDIRECTED PRN Administration Keep Vein Open - Re-Assessments/Exams Free Text/Narrative Re-Assessment/Exam: Patient is a 56-year-old female presenting to the emergency department with concerns of dehydration with a diagnosis of COVID-19. Reports she is had mild symptoms for last 5 days. She developed nausea with some dry heaving and decreased fluid intake yesterday. She has history of pots and ulcerative colitis and reports that she dehydrates very easily. She is tachycardic at 110 on triage with upwards of 130 at the time of my exam. Reports that she normally has some tachycardia but that this is higher than her normal. She is had no diarrhea. Reports cough but no shortness of breath. She is had no fever or chills. Lung sounds are clear on auscultation. Oxygen 100% on room air. She declined Regeneron treatment I have ordered blood work and EKG. I will give her 1 L bolus of normal saline. 08/11/21 13:58 Hematology significant for sodium slightly low at 133, anion gap 16.3, BUN 22, AST 48, alkaline phosphatase 144. Patient's heart rate has improved into the upper 80s after 1 L of IV fluids. She reports feeling better. She does not feel like she needs an additional liter of fluids. We will discharge her home. Reports she does have Zofran that she may use as needed for nausea. Discharge instructions as documented. Departure - Departure Time of Disposition: 13:59 Disposition: Home, Self-Care 01 Condition: Good Clinical Impression: COVID-19 - Discharge Information *PRESCRIPTION DRUG MONITORING PROGRAM REVIEWED*: No *COPY OF PRESCRIPTION DRUG MONITORING REPORT IN PATIENT VENANCIO: No Instructions: COVID-19 Referrals: Ella Urias MD [Primary Care Provider] - Forms: ED Department Discharge Additional Instructions: You were seen in the emergency department today for evaluation with regards to Covid symptoms and concern of dehydration. Blood work was completed and you are found to be slightly dehydrated. Blood work was otherwise normal. EKG was completed and also found to be normal. While in the ER, he received a liter of IV fluids. This did improve your heart rate into the upper 80s and low 90s. Recommend you continue increase fluid intake at home. Use your Zofran as needed. If you should experience any new or worsening symptoms, please not hesitate to return to the emergency department. Sepsis Event Note (ED) - Evaluation Sepsis Screening Result: No Definite Risk
[2021-08-11 19:14] VITALS: PULSE 85
== END 2021-08-11 14:10 | disposition home or self-care (01) ==
LOC: JD.ED 10:44
DX: U07.1 COVID-19 (principal); E03.9 Hypothyroidism, unspecified; Z88.5 Allergy status to narcotic agent; Z88.2 Allergy status to sulfonamides; Z88.1 Allergy status to other antibiotic agents; Z79.899 Other long term (current) drug therapy
CPT/HCPCS: 36415; 80053; 83735; 85025; 86140; 93005; 99284; J7030